=== PATIENT | female | born 1950 | race Caucasian/White ===

== ENCOUNTER 2019-08-30 17:45 | Inpatient (IN) | payer MEDICARE, SELFPAY ==
[2019-08-30] VITALS (33 sets, daily range): BP systolic 140–206; BP diastolic 61–100; PULSE 73–89; RESP 15–30; TEMP 37.2; O2SAT 49–96; BMI 53.6
--- NOTE | 2019-08-30 17:50 | ECG_ITS ---
Measurements Intervals [place] Rate: 84 P: 16 MN: 178 QRS: 16 QRSD: 106 T: 64 QT: 370 QTc: 439 SINUS RHYTHM WITH SINUS ARRHYTHMIA POSSIBLE ANTERIOR MYOCARDIAL INFARCTION , PROBABLY OLD No previous ECG available for comparison Electronically Signed On 08-31-2019 13:08:10 CRISIS MENTAL HEALTH THERAPIST by Sarah Delgado M.D. [id number]
--- NOTE | 2019-08-30 17:50 | XR_ITS ---
WS: [id number] XR chest 1V portable [id number] REASON FOR EXAM: sob FINDINGS: Comparisons were made to February 24, 2019. The cardiac silhouette is borderline enlarged with arteriosclerotic changes. The right costophrenic angle shows a small amount of pleural effusion. There is mild vascular redistribution changes seen. XR/XR chest 1V portable [id number] IMPRESSION: Mild pulmonary congestion. Mild right pleural effusion Borderline cardiomegaly with arteriosclerotic changes.
[2019-08-30 18:02] LABS: ABG PH Result 7.27 (7.35-7.45); Arterial Blood Gas Hematocrit 41.6 % (37-47); Base Excess ABG 3.6 mmol/L (-2.0-2.0); Blood Gas Allen Test Pos; Blood Gas Sample Site Radial, left; Blood Gas Sample Type Arterial; HCO3 ABG 32.6 mmol/L (22-26); Oxygen Device NC; PO2 ABG 58.2 mmHg (80.0-100.0)
[2019-08-30 18:02] LABS: Basophils # 0.1 10^3/uL (0.0-0.1); Basophils % 0.5 %; Eosinophils # 0.1 10^3/uL (0.0-0.8); Eosinophils % 0.4 %; Hematocrit 45.4 % (37.0-47.0); Lymphocytes # 1.5 10^3/uL (0.8-4.8); Lymphocytes % 10.5 %; Mean Corpuscular HGB Conc 28.6 g/dL (30.0-36.0); Mean Corpuscular Hemoglobin 24.8 pg (28.0-34.0); Mean Corpuscular Volume 86.5 fL (81-99); Mean Platelet Volume 10.8 fL (7.4-10.4); Monocytes # 0.7 10^3/uL (0.2-0.9); Neutrophils # 11.2 10^3/uL (1.8-7.7); Neutrophils % 80.9 %; Nucleated Red Blood Cells # 0.1 /100WBC; Nucleated Red Blood Cells % 0.9 %; Platelet Count 309 10^3/cmm (130-400); Red Blood Count 5.25 10^6/uL (4.1-5.3); Red Cell Distribution Width 15.9 % (12.1-15.1); White Blood Count 13.9 10^3/uL (4.0-10.0)
[2019-08-30 18:03] LABS: ABG PCO2 70.7 mmHg (35-45)
--- NOTE | 2019-08-30 18:11 | ED_ITS ---
Entered by Halima Meza, acting as scribe for Rachid Maddox DO HPI - SOB/Dyspnea General: Chief Complaint: Shortness of Breath/Dyspnea Stated Complaint: SOB Time Seen by Provider: 08/30/19 18:05 History of Present Illness: HPI Narrative: 69 yo female presents with shortness of breath. MD elicited complaint: shortness of breath Associated symptoms: Reports chest pain and orthopnea; Deny abdominal pain, dizziness, fever(s), nausea, palpitations or vomiting Review of Systems Const: Reports: chills; Denies: fever Eyes: Denies: change in vision or blurry vision ENMT: Denies: painful swallowing, swelling of lips/tongue, Change in hearing, post nasal drip or facial/sinus pain Card: Reports: chest pain and shortness of breath when lying down; Denies: palpitations, irregular heart rhythm, edema, swelling of feet/ankles or shortness of breath on exertion Resp: Reports: shortness of breath; Denies: productive cough, non-productive cough or wheezing GI: Denies: abdominal pain, nausea, vomiting, rectal pain, blood in stool or black tarry stool : Denies: painful urination, urinary frequency, urinary urgency or blood in urine Musc: Denies: neck pain, back pain, redness or joint warmth Skin/Breast: Denies: rash, itching or redness Neuro: Denies: headache, dizziness, vertigo, confusion or seizure-like activity Psych: Denies: anxiety, visual hallucinations or auditory hallucinations PFSH ED PFSH: Medical History Choledocholithiasis Hypertension Pancreatitis Prediabetes Thyroid disease Surgical History History of cholecystectomy Social History Smoking and tobacco status: never smoked Physical Exam Const: GENERAL APPEARANCE: well developed ORIENTATION/CONSCIOUSNESS: Yes oriented to person, Yes oriented to place and Yes oriented to time HENMT: COMMON NORMALS: normocephalic, external ears normal and external nose normal HEAD & SCALP: normocephalic; no scalp tenderness FACE & SINUS: normal facial exam NOSE: external nose normal and no nasal discharge EXTERNAL EAR: Yes external ears normal Eye: COMMON NORMALS: PERRL, EOMs intact bilaterally and conjunctivae normal EYELID: eyelids normal CONJUNCTIVA: Yes conjunctivae normal PUPIL: Yes PERRL Neck/C-Spine: COMMON NORMALS: full ROM GENERAL: No tracheal deviation Chest: COMMONS NORMALS: inspection of chest normal CHEST: No tenderness Resp: EFFORT & INSPECTION: Yes tachypneic, Yes respiratory distress, No retractions, No uses accessory muscles and No tracheal deviation AUSC ULTATION: no rhonchi, no wheezes and diminished lung sounds Cardio: COMMON NORMALS: regular rate and regular rhythm RATE: regular rate RHYTHM: regular rhythm HEART SOUNDS: no murmurs PERIPHERAL PULSES: radial pulses present GI: INSPECTION: No abdominal distension AUSCULTATION: No hyperactive bowel sounds and No hypoactive bowel sounds PALPATION: No guarding and No rigid PERCUSSION: no dullness to percussion and no tympanic to percussion : COMMON NORMALS: No no CVA tenderness BLADDER/KIDNEY EXAM: No no CVA tenderness Back/Pelvis: COMMON NORMALS: negative for no CVA tenderness Neuro: SENSORIUM/ORIENTATION: Yes oriented to person, Yes oriented to place an d Yes oriented to time Psych: COMMON NORMALS: mental status grossly normal Skin: COMMON NORMALS: no rashes or lesions noted GENERAL SKIN EXAM: no rashes or lesions noted Course Vital Signs: Vital signs: Vital Signs Temperature 98.9 F 08/30/19 17:51 Pulse Rate 78 08/31/19 01:00 Respiratory Rate 21 H 08/31/19 01:00 Blood Pressure 154/67 08/31/19 01:00 Pulse Oximetry 96 08/31/19 01:00 MDM - SOB/Dyspnea MDM Narrative: Medical decision making narrative: 69-year-old female presenting in significant respiratory distress with room air saturations in the mid 40s. She improved quickly on nonrebreather oxygenation. However, she was found to be in respiratory acidosis with a high PCO2 as well. BiPAP was used. At 2 hours, her pH had gone from 7.27-7.37, and PCO2 had decreased nicely. Chest x-ray shows pulmonary edema. Her d-dimer was significantly elevated so CTA was performed, but did not show a clot. She was treated for pulmonary edema, and improved significantly. Before going to the ICU, we did a short trial off of BiPAP, and the patient did not do well, so she went back on BiPAP as soon as she got to the ICU. Lab Data: Labs: Lab Results 08/30/19 08/30/19 08/30/19 Range/Units 17:52 17:57 17:57 WBC 13.9 H (4.0-10.0) 10^3/ uL RBC 5.25 (4.1-5.3) 10^6/u L Hgb 13.0 (11.5-15.3) g/dL Hct 45.4 (37.0-47.0) % MCV 86.5 (81-99) fL MCH 24.8 L (28.0-34.0) pg MCHC 28.6 L (30.0-36.0) g/dL RDW 15.9 H (12.1-15.1) % Plt Count 309 (130-400) 10^3/c mm MPV 10.8 H (7.4-10.4) fL Neut % (Auto) 80.9 % Lymph % (Auto) 10.5 % Gibson % (Auto) 5.0 % Eos % (Auto) 0.4 % Baso % (Auto) 0.5 % Neut # (Auto) 11.2 H (1.8-7.7) 10^3/u L Lymph # (Auto) 1.5 (0.8-4.8) 10^3/u L Gibson # (Auto) 0.7 (0.2-0.9) 10^3/u L Eos # (Auto) 0.1 (0.0-0.8) 10^3/u L Baso # (Auto) 0.1 (0.0-0.1) 10^3/u L Nucleated RBC % (a uto) 0.9 % Nucleated RBCs # 0.1 /100WBC PT 14.20 H (10.5-13.3) SECO NDS INR 1.06 (0.8-1.2) D-Dimer (0-0.59) ug/mIFE U Specimen Type Arterial Sample Site Radial, left ABG pH 7.27 L (7.35-7.45) ABG pCO2 70.7 H* (35-45) mmHg ABG pO2 58.2 L (80.0-100.0) mmH g ABG HCO3 32.6 H (22-26) mmol/L ABG Base Excess 3.6 H (-2.0-2.0) mmol/ L Benigno Test Pos Hematocrit 41.6 (37-47) % O2 Delivery Device Nc O2 Liters/Min 5.0 % FiO2 40.0 % Structural Technician ID ed Sodium (136-145) mmol/L Potassium (3.5-5.1) mmol/L Chloride (98-107) mmol/L Carbon Dioxide (22-29) mmol/L Anion Gap (5-19) BUN (8-23) mg/dL Creatinine (0.5-0.9) mg/dL GFR Calculation (90-130) mL/min Glucose (65-115) mg/dL Lactate (0.5-2.2) mmol/L Calcium (8.5-10.5) mg/dL Total Bilirubin (0.15-1.2) mg/dL AST (0-32) U/L ALT (0-33) U/L Alkaline Phosphata se (35-105) IU/L Troponin T Baselin e (0-10) ng/mL Troponin T 120 Min iroquois (0-10) ng/mL Delta Troponin T (0-10) ABS# NT-Pro-B Natriuret Pep (0-125) pg/mL Total Protein (6.6-8.7) g/dL Albumin (3.5-5.2) g/dL Globulin (1.3-4.6) g/dL Amylase (28-100) U/L Lipase (13-60) U/L 08/30/19 08/30/19 08/30/19 Range/Units 17:57 17:57 17:57 WBC (4.0-10.0) 10^3/ uL RBC (4.1-5.3) 10^6/u L Hgb (11.5-15.3) g/dL Hct (37.0-47.0) % MCV (81-99) fL MCH (28.0-34.0) pg MCHC (30.0-36.0) g/dL RDW (12.1-15.1) % Plt Count (130-400) 10^3/c mm MPV (7.4-10.4) fL Neut % (Auto) % Lymph % (Auto) % Gibson % (Auto) % Eos % (Auto) % Baso % (Auto) % Neut # (Auto) (1.8-7.7) 10^3/u L Lymph # (Auto) (0.8-4.8) 10^3/u L Gibson # (Auto) (0.2-0.9) 10^3/u L Eos # (Auto) (0.0-0.8) 10^3/u L Baso # (Auto) (0.0-0.1) 10^3/u L Nucleated RBC % (a uto) % Nucleated RBCs # /100WBC PT (10.5-13.3) SECO NDS INR (0.8-1.2) D-Dimer 1.23 H (0-0.59) ug/mIFE U Specimen Type Sample Site ABG pH (7.35-7.45) ABG pCO2 (35-45) mmHg ABG pO2 (80.0-100.0) mmH g ABG HCO3 (22-26) mmol/L ABG Base Excess (-2.0-2.0) mmol/ L Benigno Test Hematocrit (37-47) % O2 Delivery Device O2 Liters/Min % FiO2 % Structural Technician ID Sodium 143 (136-145) mmol/L Potassium 4.3 (3.5-5.1) mmol/L Chloride 100 (98-107) mmol/L Carbon Dioxide 31 H (22-29) mmol/L Anion Gap 16.3 (5-19) BUN 26 H (8-23) mg/dL Creatinine 0.8 (0.5-0.9) mg/dL GFR Calculation 70.9 L (90-130) mL/min Glucose 169 H (65-115) mg/dL Lactate 2.4 H (0.5-2.2) mmol/L Calcium 9.9 (8.5-10.5) mg/dL Total Bilirubin 0.4 (0.15-1.2) mg/dL AST 18 (0-32) U/L ALT 42 H (0-33) U/L Alkaline Phosphata se 126 H (35-105) IU/L Troponin T Baselin e (0-10) ng/mL Troponin T 120 Min iroquois (0-10) ng/mL Delta Troponin T (0-10) ABS# NT-Pro-B Natriuret Pep 2005 H (0-125) pg/mL Total Protein 7.8 (6.6-8.7) g/dL Albumin 4.3 (3.5-5.2) g/dL Globulin 3.5 (1.3-4.6) g/dL Amylase (28-100) U/L Lipase (13-60) U/L 08/30/19 08/30/19 08/30/19 Range/Units 17:57 17:57 20:05 WBC (4.0-10.0) 10^3/ uL RBC (4.1-5.3) 10^6/u L Hgb (11.5-15.3) g/dL Hct (37.0-47.0) % MCV (81-99) fL MCH (28.0-34.0) pg MCHC (30.0-36.0) g/dL RDW (12.1-15.1) % Plt Count (130-400) 10^3/c mm MPV (7.4-10.4) fL Neut % (Auto) % Lymph % (Auto) % Gibson % (Auto) % Eos % (Auto) % Baso % (Auto) % Neut # (Auto) (1.8-7.7) 10^3/u L Lymph # (Auto) (0.8-4.8) 10^3/u L Gibson # (Auto) (0.2-0.9) 10^3/u L Eos # (Auto) (0.0-0.8) 10^3/u L Baso # (Auto) (0.0-0.1) 10^3/u L Nucleated RBC % (a uto) % Nucleated RBCs # /100WBC PT (10.5-13.3) SECO NDS INR (0.8-1.2) D-Dimer (0-0.59) ug/mIFE U Specimen Type Sample Site ABG pH (7.35-7.45) ABG pCO2 (35-45) mmHg ABG pO2 (80.0-100.0) mmH g ABG HCO3 (22-26) mmol/L ABG Base Excess (-2.0-2.0) mmol/ L Benigno Test Hematocrit (37-47) % O2 Delivery Device O2 Liters/Min % FiO2 % Structural Technician ID Sodium (136-145) mmol/L Potassium (3.5-5.1) mmol/L Chloride (98-107) mmol/L Carbon Dioxide (22-29) mmol/L Anion Gap (5-19) BUN (8-23) mg/dL Creatinine (0.5-0.9) mg/dL GFR Calculation (90-130) mL/min Glucose (65-115) mg/dL Lactate (0.5-2.2) mmol/L Calcium (8.5-10.5) mg/dL Total Bilirubin (0.15-1.2) mg/dL AST (0-32) U/L ALT (0-33) U/L Alkaline Phosphata se (35-105) IU/L Troponin T Baselin e 15 H (0-10) ng/mL Troponin T 120 Min [place] 19.15 H (0-10) ng/mL Delta Troponin T 4.15 (0-10) ABS# NT-Pro-B Natriuret Pep (0-125) pg/mL Total Protein (6.6-8.7) g/dL Albumin (3.5-5.2) g/dL Globulin (1.3-4.6) g/dL Amylase 49 (28-100) U/L Lipase 29 (13-60) U/L 08/30/19 Range/Units 20:35 WBC (4.0-10.0) 10^3/ uL RBC (4.1-5.3) 10^6/u L Hgb (11.5-15.3) g/dL Hct (37.0-47.0) % MCV (81-99) fL MCH (28.0-34.0) pg MCHC (30.0-36.0) g/dL RDW (12.1-15.1) % Plt Count (130-400) 10^3/c mm MPV (7.4-10.4) fL Neut % (Auto) % Lymph % (Auto) % Gibson % (Auto) % Eos % (Auto) % Baso % (Auto) % Neut # (Auto) (1.8-7.7) 10^3/u L Lymph # (Auto) (0.8-4.8) 10^3/u L Gibson # (Auto) (0.2-0.9) 10^3/u L Eos # (Auto) (0.0-0.8) 10^3/u L Baso # (Auto) (0.0-0.1) 10^3/u L Nucleated RBC % (a uto) % Nucleated RBCs # /100WBC PT (10.5-13.3) SECO NDS INR (0.8-1.2) D-Dimer (0-0.59) ug/mIFE U Specimen Type Arterial Sample Site Radial, right ABG pH 7.37 (7.35-7.45) ABG pCO2 60.8 H* (35-45) mmHg ABG pO2 110.0 H (80.0-100.0) mmH g ABG HCO3 35.7 H (22-26) mmol/L ABG Base Excess 8.3 H (-2.0-2.0) mmol/ L Benigno Test Pos Hematocrit 40.4 (37-47) % O2 Delivery Device Bipap O2 Liters/Min % FiO2 40.0 % Structural Technician ID ellpe Sodium (136-145) mmol/L Potassium (3.5-5.1) mmol/L Chloride (98-107) mmol/L Carbon Dioxide (22-29) mmol/L Anion Gap (5-19) BUN (8-23) mg/dL Creatinine (0.5-0.9) mg/dL GFR Calculation (90-130) mL/min Glucose (65-115) mg/dL Lactate (0.5-2.2) mmol/L Calcium (8.5-10.5) mg/dL Total Bilirubin (0.15-1.2) mg/dL AST (0-32) U/L ALT (0-33) U/L Alkaline Phosphata se (35-105) IU/L Troponin T Baselin e (0-10) ng/mL Troponin T 120 Min iroquois (0-10) ng/mL Delta Troponin T (0-10) ABS# NT-Pro-B Natriuret Pep (0-125) pg/mL Total Protein (6.6-8.7) g/dL Albumin (3.5-5.2) g/dL Globulin (1.3-4.6) g/dL Amylase (28-100) U/L Lipase (13-60) U/L Critical Care Time Critical Care Time: Critical Care Time: Yes Total Critical Care Time: 45 Attestation: This case had a high probability of a clinically significant, sudden, or life threatening deterioration of this patient's condition which required my full and direct attention, intervention and personal management. Discharge Plan Discharge Admit Provider: Shea Chang Condition: Stable Interventions: ED Discharge Assessment Last Done: 08/30/19 23:36 Discharge Date/Time: 08/31/19 00:01 Coding Level of Care Code ED Director Process for Chg Fwd The documentation recorded by the Derrick houser Kialy, accurately reflects the service I personally performed and the decisions made by , Rachid Maddox DO Aug 30, 2019 17:45
[2019-08-30 18:19] LABS: INR 1.06 (0.8-1.2)
--- NOTE | 2019-08-30 18:29 | ECG_ITS ---
Measurements Intervals [place] Rate: 83 P: AK: 0 QRS: 15 QRSD: 101 T: 66 QT: 378 QTc: 445 ATRIAL FIBRILLATION POSSIBLE ANTERIOR MYOCARDIAL INFARCTION , PROBABLY OLD No previous ECG available for comparison Electronically Signed On 08-31-2019 13:07:33 DOCUMENT IMPROVEMENT SPECIALIST by Sarah Delgado M.D. [email or web address]
[2019-08-30 18:37] LABS: Alanine Aminotransferase 42 U/L (0-33); Albumin Level 4.3 g/dL (3.5-5.2); Alkaline Phosphatase 126 IU/L (35-105); Anion Gap 16.3 (5-19); Aspartate Amino Transferase 18 U/L (0-32); Blood Urea Nitrogen 26 mg/dL (8-23); Calcium 9.9 mg/dL (8.5-10.5); Carbon Dioxide 31 mmol/L (22-29); Chloride 100 mmol/L (98-107); Globulin 3.5 g/dL (1.3-4.6); Glomerular Filtration Rate 70.9 mL/min (90-130); Glucose 169 mg/dL (65-115); NT Pro B Type Natriuretic Pept 2005 pg/mL (0-125); Potassium 4.3 mmol/L (3.5-5.1); Sodium 143 mmol/L (136-145); Total Bilirubin 0.4 mg/dL (0.15-1.2); Total Protein 7.8 g/dL (6.6-8.7)
[2019-08-30 18:49] LABS: D Dimer 1.23 ug/mIFEU (0-0.59)
[2019-08-30 18:57] LABS: Lactate (Lactic Acid level) 2.4 mmol/L (0.5-2.2)
[2019-08-30 18:58] LABS: Troponin(5th) Baseline 15 ng/mL (0-10)
--- NOTE | 2019-08-30 19:06 | CTR_ITS ---
PROCEDURE INFORMATION: Exam: CT Angiography Chest With Contrast Exam date and time: 08/30/2019 8:45 PM Age: 69 years old Clinical indication: Shortness of breath; Patient HX: SOB w cp; Additional info: Chest pain TECHNIQUE: Imaging protocol: Computed tomographic angiography of the chest with intravenous contrast. 3D rendering: MIP and/or 3D reconstructed images were created by the technologist. Total DLP: 539.29 mGy-cm Radiation optimization: All CT scans at this facility use at least one of these dose optimization techniques: automated exposure control; mA and/or kV adjustment per patient size (includes targeted exams where dose is matched to clinical indication); or iterative reconstruction. Contrast material: OMNI 350; Contrast volume: 95 ml; Contrast route: 18G; COMPARISON: CR XR chest 1V portable [id number] 08/30/2019 6:09 PM FINDINGS: Pulmonary arteries: Normal. No pulmonary emboli. Aorta: Unremarkable. No aortic aneurysm. No aortic dissection. Lungs: See Pleural Space Finding. Pleural space: There are bilateral pleural effusions with underlying compressive atelectasis or infiltrate. Bilateral pulmonary ground-glass opacities. Heart: Mild cardiomegaly. Gallbladder and bile ducts: The gallbladder has been removed. Lymph nodes: Unremarkable. No enlarged lymph nodes. Bones/joints: There are degenerative changes in the thoracic spine. Soft tissues: Unremarkable. CT/CT angio chest PE protcl [id number] IMPRESSION: 1. There are bilateral pleural effusions with underlying compressive atelectasis or infiltrate. In combination with cardiomegaly, findings are consistent with congestive heart failure. 2. Bilateral pulmonary ground-glass opacities are nonspecific however likely represent pulmonary edema in this patient. Radiation Dose CTDIVOL = (mGy): DLP = 539.29 (mGy-cm)
[2019-08-30] MEDS: ipratropium-albuterol 3 mL Neb INHALATION (19:13)
[2019-08-30] MEDS: FUROsemide 10 mg/mL SDV 10mL 60 MG IVP (19:18)
--- NOTE | 2019-08-30 19:29 | PC.NURSE ---
EKG performed and shown to ED physician.
[2019-08-30] MEDS: enalaprilat 1.25 mg/mL Inj IVP (20:12)
[2019-08-30] MEDS: hyDRALAzine 20 mg/mL INJ 1 mL 10 MG IVP (20:14)
[2019-08-30 20:46] LABS: Blood Gas Allen Test Pos; Blood Gas Sample Site Radial, right; Blood Gas Sample Type Arterial; Oxygen Device BIPAP
[2019-08-30 20:47] LABS: ABG PCO2 60.8 mmHg (35-45); ABG PH Result 7.37 (7.35-7.45); Arterial Blood Gas Hematocrit 40.4 % (37-47); Base Excess ABG 8.3 mmol/L (-2.0-2.0); HCO3 ABG 35.7 mmol/L (22-26)
[2019-08-30 20:51] LABS: Troponin 5 2HR 19.15 ng/mL (0-10); Troponin 5 2HR Delta 4.15 ABS# (0-10)
[2019-08-30] MEDS: iohexol 350 mg/mL 100 mL Btl IV (21:01)
[2019-08-30] MEDS: morphine 4 mg/mL SDV 1 mL IVP (22:15)
[2019-08-30] MEDS: ondansetron 2 mg/ML SDV 2 mL 4 MG IVP (22:15)
--- NOTE | 2019-08-30 23:35 | PC.NURSE ---
Received patient report from Hubert in ER at this time. Marisa RN
[2019-08-31] VITALS (76 sets, daily range): BP systolic 88–165; BP diastolic 44–86; PULSE 52–96; RESP 10–33; TEMP 36.3–37.6; O2SAT 83–99
--- NOTE | 2019-08-31 | PC.NURSE ---
Dr Chang here and is aware of patient's respiratory status and abnormal ABGs. RT also present at bedside. MMorgan RN
[2019-08-31 00:11] LABS: Alveolar-Arterial Oxygen Gradi 449.9 mmHg (5-10); Arterial Blood Gas Hematocrit 44.4 % (37-47); Base Excess ABG 3.7 mmol/L (-2.0-2.0); Blood Gas Allen Test Pos; Blood Gas Sample Site Radial, right; Blood Gas Sample Type Arterial; Carboxyhemoglobin 0.1 %THgb (0.4-20.1); HCO3 ABG 37.6 mmol/L (22-26); HGB O2 Sat 95.3 % (95-100); Ionized Calcium Level - ABG 1.3 mmol/L (1.1-1.4); Methemoglobin 0.2 % (0.4-1.5); Oxygen Device BIPAP; Oxygen Saturation ABG 95.7; Potassium Level - ABG 4.5 mmol/L (3.5-5.0); Total Hemoglobin 14.5 g/dL (12-16)
--- NOTE | 2019-08-31 00:29 | ECG_ITS ---
Measurements Intervals [place] Rate: 69 P: NE: 0 QRS: 13 QRSD: 105 T: 130 QT: 412 QTc: 443 ATRIAL FIBRILLATION WITH ABERRANT CONDUCTION OR VENTRICULAR PREMATURE COMPLEXES POSSIBLE ANTERIOR MYOCARDIAL INFARCTION, OF INDETERMINATE AGE MODERATE T-WAVE ABNORMALITY, CONSIDER LATERAL ISCHEMIA No previous ECG available for comparison Electronically Signed On 09-01-2019 21:10:45 ELEVATOR REPAIR MECHANIC by Sarah Delgado M.D. [id number]
--- NOTE | 2019-08-31 00:29 | PC.RESP ---
patient got to ICU sp02 80% on NRB, oxygen tank empty when unplugged to plastic sheets finishing supervisor to wall quick connect, bipap placed on patient changed bipap to 25/15 100%, called dr jean baptiste for ABG, critical results read back to dr jean baptiste, no new orders at this time, to keep patient on bipap, will continue to monitor
[2019-08-31] MEDS: naloxone 0.4 mg/ml SDV IVP ×2 (00:30→00:45)
--- NOTE | 2019-08-31 00:31 | USCV_ITS ---
Adalberto Jennifer Age: 69 Gender: F : 1950 Exam Date: 08/31/2019 09:12 Ordering Phys: Shea Chang MD Technologist: Iker Grimm Exam Location: [facility] Indication: NEW CHF BP: 126 / 60 HR: 75 Rhythm: Sinus Technical Quality: Very technically difficult study MEASUREMENTS (Male / Female) Normal Values 2D ECHO LV Diastolic Diameter PLAX 4.2 cm 4.2 - 5.9 / 3.9 - 5.3 cm LV Systolic Diameter PLAX 2.6 cm IVS Diastolic Thickness 1.3 cm 0.6 - 1.0 / 0.6 - 0.9 cm IVS Systolic Thickness 1.5 cm LVPW Diastolic Thickness 1.2 cm 0.6 - 1.0 / 0.6 - 0.9 cm LVPW Systolic Thickness 1.6 cm LVOT Diameter 2.0 cm LV Ejection Fraction 2D Teich 68.0 % LA Diameter 4.3 cm M-MODE LV Diastolic Diameter MM 5.7 cm 4.2 - 5.9 / 3.9 - 5.3 cm LV Systolic Diameter MM 3.3 cm LV Ejection Fraction MM Teich 72.7 % IVS Diastolic Thickness MM 1.0 cm 0.6 - 1.0 / 0.6 - 0.9 cm IVS Systolic Thickness MM 2.2 cm LVPW Diastolic Thickness MM 1.1 cm 0.6 - 1.0 / 0.6 - 0.9 cm LVPW Systolic Thickness MM 1.6 cm RV Diastolic Diameter MM 2.0 cm Aortic Annulus Diameter 3.5 cm LA Ao Ratio MM 1.2 MV E Point Septal Separation 0.8 cm DOPPLER TR Peak Velocity 241.0 cm/s TR Peak Gradient 23.3 mmHg TV Peak E Velocity 113.0 cm/s Right Atrial Pressure 15.0 mmHg Pulmonary Artery Systolic Pressu 38.2 mmHg FINDINGS Left Ventricle Left ventricular cavity not well visualized. Probably normal left ventricular systolic function. The study is inadequate for estimation of regional wall motion abnormality. Right Ventricle Right ventricle not well visualized. Right Atrium Right atrium not well visualized. Left Atrium Left atrium not well visualized. Mitral Valve Moderate mitral annular calcification. Aortic Valve Aortic valve not well visualized. Tricuspid Valve Tricuspid valve not well visualized. Trace tricuspid valve regurgitation. Pulmonic Valve Pulmonic valve not well visualized. No pulmonary valve stenosis. Trace pulmonary valve regurgitation. Pericardium No pericardial effusion. Aorta Normal-sized aortic root. CONCLUSIONS 1. This is a technically very difficult study because of poor ultrasonic windows. 2. Probably normal left ventricular systolic function. The study is inadequate for estimation of regional wall motion abnormality. 3. No prior similar studies to compare. Sarah Delgado MD (Electronically Signed) Final Date: 31 August 2019 14:10 S
--- NOTE | 2019-08-31 00:42 | P.HP_ITS ---
Providers/Chief Complaint Admitting Physician: Shea Chang MD Primary Care Provider: Radha Bagley NP Chief Complaint: SOB History of Present Illness Jennifer Glover is a 69 year old female with a past medical history of hypertension, prediabetes, pancreatitis in March 2019 required urgent cholecystectomy for history of [facility] which was complicated by prolonged ventilator dependent respiratory failure and to 13 days to extubate patient. She does not have a baseline history of COPD, chronic home oxygen use, sleep apnea or CHF. The history currently is obtained by talking to the patient's . At the time of my evaluation patient is obtunded. Per patient was in her usual state of health until about 3 to 4 days ago when she started to experience elvin rtness of breath initially on exertion gradually worsening to the point of being short of breath at rest. She had complained of some intrascapular back pain at the time of onset of symptoms. She she has had a mild cough with some mucoid expectoration. She is back to the ER today with the above complaints and was noted to be in severe respiratory distress, hypoxic respiratory failure with O2 sats of 46%.. Blood gas upon admission was 7.27/70 7/50 8.2/32.6 on 5 L of nasal cannula. She was started on BiPAP and an approximately 2 hours her gas improved to 7.37/60 0.8/1 10/35.7. Per report she had shown symptomatic improvement she was alert and awake and cooperative. She was able to move from bed to bedside commode. She received 4 mg of IV morphine for complaints of back pain. At the time of my evaluation, patient is more lethargic. She is able to correctly state her name and answer yes or no to directed questions, however is unable to tell me recent events. She is given a trial of taking of the BiPAP and put on 10 L nonrebreather, however this did drop her oxygen saturation back to 79%. She has therefore been transferred to the ICU and placed back on BiPAP at this time. Tidal volume is low with 200 to 300 mL. Narcan has been administered x2. Repeat gas currently at midnight is 7.1 1/118/124/30 7.6. Carboxyhemoglobin is 0.1. Methemoglobin is 0.2. At this point discussion was pursued with the regarding the need for intubation and mechanical ventilation, however patient states that him and his have discussed that in the past and she has elected not to be intubated. Even though she does not carry a significant premorbid respiratory condition diagnosis,, at the time when she had her pancreatitis and needed emergent surgery, she was unable to be taken off of the ventilator for 13 days. This was a very traumatic experience for the patient and she stated to her that she would not want to be intubated again. He states that she had undergone an echocardiogram, stress test and an angiogram, none of which were suggestive of obstructive CAD. He does not know her last EF. Diagnostics in the ER was thus far showing leukocytosis of 13.9, ABGs as above, normal renal function creatinine 0.8, lactate 2.4, ALT 42 normal AST alk phos 126. Troponin delta's of +4 and then -1.25. BNP is elevated at greater than 2000. CTA chest is negative for PE. There are bilateral pleural effusions with underlying compressive atelectasis or infiltrate. Cardiomegaly is also noted. Concern for congestive heart failure. There are bilateral pulmonary groundglass opacities likely represent pulmonary edema. Upon arrival to the ED her blood pressure was 184/98, has been states it has been uncontrolled recently and a new medication was added about 2 weeks ago, however he does not know which one this was. She has received hydralazine and enalapril with blood pressure now 154/67. Review of Systems General: Reports: ROS unobtainable due to medical condition and ROS unobtainable due to mental status Medications/Allergies Home Medications Medication Instructions Recorded Confirmed Last Taken Type amlodipine 5 mg PO BID 08/30/19 08/30/19 08/30/19 History aspirin 81 mg PO DAILY 08/30/19 08/30/19 08/30/19 History ibuprofen 800 mg PO TID 08/30/19 08/30/19 08/30/19 History metoprolol succinate 50 mg PO DAILY 08/30/19 08/30/19 08/30/19 History Allergies Allergy/AdvReac Type Severity Reaction Status Date / Time No Known Allergies Allergy Verified 08/30/19 17:56 PFSH Acute PFSH: Medical History Choledocholithiasis Hypertension Pancreatitis Prediabetes Thyroid disease Surgical History History of cholecystectomy Social History Smoking and tobacco status: never smoked Vitals/I&O/Wt Last Vital Signs Temp 98.9 F 08/30/19 17:51 Pulse 73 08/30/19 23:36 Resp 20 H 08/30/19 23:36 BP 163/74 08/30/19 23:36 Pulse Ox 96 08/30/19 23:36 Weight last 48 hrs Weight 124.738 kg Physical Exam Narrative: EXAM NARRATIVE: GEN: Lethargic, opens eyes to calling name, is able to answer some simple questions including her name and yes or no however does not consistently follow commands. CVS: S1S2 N RS: Reduced air entry bilateral anteriorly, more likely related to poor inspiratory effort. Abd: Soft, obese, Nt/nd , bs+ TRANSCRIBER: Lethargic, moves bilateral upper extremities, not following commands for other assessment. Data : 08/30/19 17:57 08/30/19 17:57 Micro: Microbiology 08/30/19 18:35 Blood Culture - Preliminary Blood SPECIMEN COLLECTED 08/30/19 17:57 Blood Culture - Preliminary Blood SPECIMEN COLLECTED A&P Assessment and plan (1) Hypertension: Status: Acute Code(s): I10 - Essential (primary) hypertension (2) Acute respiratory failure with hypoxia and hypercapnia: Status: Acute Code(s): J96.01 - Acute respiratory failure with hypoxia; J96.02 - Acute respiratory failure with hypercapnia (3) Pulmonary edema: Status: Acute Code(s): J81.1 - Chronic pulmonary edema (4) Acute encephalopathy: Status: Acute Code(s): G93.40 - Encephalopathy, unspecified (5) Hypertensive emergency: Status: Acute Code(s): I16.1 - Hypertensive emergency Additional A&P Information Admit to ICU in view of acute hypoxic hypercapnic respiratory failure. 1. Acute hypoxic hypercapnic respiratory failure. Per discussion with the patient does not have a prior diagnosis of COPD, CHF, sleep apnea or other respiratory issues. Apart from that time postoperatively when she needed to be vent dependent for 13 days and had diffic ult extubation, she has not been having any chronic respiratory issues. Per his history symptoms started more subacutely over the past week or so. CT chest shows bilateral diffuse infiltrates suggestive of pulmonary edema. This may be likely to CHF from underlying cardiac causes versus hypertensive urgency with blood pressure greater than 180/120 upon presentation. Additionally her blood pressure has been uncontrolled over the past 2 weeks at least per history. We will obtain echocardiogram No PE noted on the above study Troponins only mildly elevated with negative delta, therefore low suspicion for acute coronary syndrome at this time. Will check influenza swab given symptoms of running nose and cough Empiric ceftriaxone and azithromycin for now while undergoing sepsis rule out. Blood culture with morning labs. Check procalcitonin Infiltrates do not appear to be fluffy exudates to raise concern for ARDS from sepsis. Avoid any further opiates to minimize risk of respiratory depression. She was given Narcan x2, however this has not been a significant to her respiratory status. I have discussed with the that at this time that intubation with mechanical is indicated , however he has stated that patient is DNI per her last known wishes and has had extensive discussion with her after her hospitalization in March 2019. Details as in HPI. We will continue BiPAP continuously and check serial ABGs. 2. Acute encephalopathy most likely resulting from hypoxia and hypercapnia. Patient had an better mental status upon admission. This is gradually declined during her stay and correlates with rising CO2 levels. Therefore most likely suspect hypercapnia to be the cause. Opiates may be contributing additionally, however there was no response after getting Narcan and there is no pupillary constriction noted on exam at this time. 3. Hypertension: Patient is to be kept n.p.o. given severe respiratory distress. BP control with hydralazine and metoprolol 4. reported h/o preDM, will check a1c 5. 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
[2019-08-31 00:48] LABS: Amylase 49 U/L (28-100); Lipase 29 U/L (13-60)
[2019-08-31 00:53] LABS: ABG PH Result 7.11 (7.35-7.45)
[2019-08-31 00:53] LABS: Troponin 5 6HR 13.75 ng/mL (0-10)
[2019-08-31 00:59] LABS: Glucose Point of Care 176 mg/dL (70-110)
[2019-08-31 01:00] LABS: Troponin 5 6HR Delta -1.25 ng/L (0-12)
[2019-08-31 01:18] LABS: Add Urine Microscopic? YES; Bilirubin Urine Neg (NEGATIVE); Blood Urine Neg (Negative); Glucose Urine UA Norm (Normal); Ketones Urine Negative (Negative); Leukocyte Esterase Urine Negative (Negative); Nitrate Urine Negative (Negative); Protein Urine Trace (Negative); RBC Urine RARE /hpf (0-2); Specific Gravity, Urine 1.015 (1.005-1.030); Squamous Epithelial Cell Urine RARE (0-5); Urine Color Yellow (Yellow); Urobilinogen Urine Norm (Negative); WBC Urine RARE /hpf (0-5); pH Urine 5 (5-7)
[2019-08-31] MEDS: azithromycin 500 MG in sodium chloride 0.9% 250 ML 250 MG IV (01:18)
[2019-08-31 01:19] LABS: Amorphous Sediment Urine 2+; Bacteria Urine 1+
[2019-08-31] MEDS: nitroglycerin 1 gm/inch oint Pkt 1 INCH TOPICAL (01:21)
[2019-08-31] MEDS: cefTRIAXone 1,000 MG in sodium chloride 0.9% (plus) 50 ML 100 MG IV (01:21)
[2019-08-31 01:54] LABS: Arterial Blood Gas Hematocrit 42.5 % (37-47); Base Excess ABG 2.9 mmol/L (-2.0-2.0); Blood Gas Allen Test Pos; Blood Gas Sample Site Radial, right; Blood Gas Sample Type Arterial; HCO3 ABG 36.6 mmol/L (22-26); Oxygen Device BIPAP
--- NOTE | 2019-08-31 02:00 | PC.NURSE ---
Dr Chang at bedside along with RT. MD aware of respiratory status and abnormal ABGs. MMorgan RN
[2019-08-31 02:16] LABS: Influenza A by IFA Negative (Negative); Influenza B by IFA Negative (Negative)
[2019-08-31] MEDS: ipratropium-albuterol 3 mL Neb INHALATION ×6 (03:50→23:29)
[2019-08-31] MEDS: FUROsemide 10 mg/mL SDV 4mL 40 MG IVP ×2 (04:09→13:16)
[2019-08-31] MEDS: metoprolol tartrate 1 mg/1 mL SDV 5 mL 2.5 MG IV ×5 (04:10→20:36)
[2019-08-31 04:23] LABS: Arterial Blood Gas Hematocrit 41.3 % (37-47); Base Excess ABG 3.8 mmol/L (-2.0-2.0); Blood Gas Allen Test Pos; Blood Gas Sample Site Radial, right; Blood Gas Sample Type Arterial; HCO3 ABG 36.1 mmol/L (22-26); Oxygen Device BIPAP
--- NOTE | 2019-08-31 04:32 | P.EN_ITS ---
Event Note Event Note: Patient has had serial ABGs 3 times since moving to the ICU at midnight. All have consistently shown a pH of around 7.1 PCO2 between 10 3-1 1 8. Patient is becoming increasingly bradycardic with heart rate now down to 50s. She continues to pull poor tidal volumes of 200 mL on the BiPAP. Her se ttings remain at 100% FiO2. Call was placed to Mr. Glover to discuss patient's ongoing clinical state. Discussed with him that patient's cardiac status is starting to get affected in view of respiratory decline and that bradycardia may soon progress to arrhythmia or asystole. I am concerned that she may pass from such an event overnight. Currently her resuscitation status is to perform chest compressions if needed and follow ACLS protocol for arrhythmias. I discussed with him again that while we could follow the instructions as above, it is highly unlikely to be of any benefit to try to resuscitate from a cardiac standpoint without addressing the underlying inciting factor which is respiratory distress, hypoxia and hypercapnia.. In her situation any resuscitative measures should be directed both towards the cardiac and pulmonary systems. Given the above and the fact that the cause of her sudden decompensation over the past 4 days is still being worked up, current evaluation pointing towards pulmonary edema, effusion and possible pneumonia which may be potentially reversible, a resuscitative approach including intubation would not be unreasonable at this time. Mr. Lefty Glover has decided now to proceed with intubation and mechanical ventilation in addition to other ACLS resuscitative measures if needed. However if within the next 48 hours patient continues to decline and is eventually unable to be weaned off the ventilator, he would not want a prolonged intubation will likely elect for comfort care in that setting. At this time, it is not possible to predict how long she will need to remain intubated. Event Notes Attestations Time Spent in Patient Care: Greater than 35 minutes (>than 50% of time spent in counselling and/or direct pt care on unit) .
[2019-08-31] MEDS: succinylcholine 20 mg/mL SDV 10mL 150 MG IVP (04:43)
[2019-08-31] MEDS: midazolam 1 mg/mL INJ 2 mL 4 MG IVP (04:45)
[2019-08-31 04:51] LABS: Thyroid Stimulating Hormone 0.43 uIU/mL (0.27-4.20)
--- NOTE | 2019-08-31 04:58 | XR_ITS ---
WS: [id number] XR chest 1V portable [id number] REASON FOR EXAM: intubation FINDINGS: Endotracheal tube is seen the tube is noted in the karine and there appears to be mild leilani estion of both hilar areas. A feeding tube is seen in the stomach. The ICU was called this report at 8:29 AM on 08/31/2019. XR/XR chest 1V portable [id number] IMPRESSION: Endotracheal tube too low in the karine with congestion low-grade atelectasis p erihilar areas. The feeding tube is seen in the upper stomach.
[2019-08-31 04:59] LABS: Basophils % 0.3 %; Eosinophils % 0.1 %; Hematocrit 45.1 % (37.0-47.0); Hemoglobin 12.6 g/dL (11.5-15.3); Lymphocytes # 0.7 10^3/uL (0.8-4.8); Lymphocytes % 5.1 %; Mean Corpuscular HGB Conc 27.9 g/dL (30.0-36.0); Mean Corpuscular Hemoglobin 24.7 pg (28.0-34.0); Mean Corpuscular Volume 88.3 fL (81-99); Mean Platelet Volume 11.4 fL (7.4-10.4); Monocytes # 0.1 10^3/uL (0.2-0.9); Monocytes % 1.1 %; Neutrophils # 11.8 10^3/uL (1.8-7.7); Neutrophils % 90.8 %; Nucleated Red Blood Cells # 0.1 /100WBC; Nucleated Red Blood Cells % 0.4 %; Platelet Count 274 10^3/cmm (130-400); Red Blood Count 5.11 10^6/uL (4.1-5.3); Red Cell Distribution Width 15.7 % (12.1-15.1)
[2019-08-31] MEDS: propofol 1,000 MG/100 ML INJ 15 MG IV (05:00)
[2019-08-31 05:31] LABS: Alanine Aminotransferase 41 U/L (0-33); Albumin Level 3.7 g/dL (3.5-5.2); Alkaline Phosphatase 116 IU/L (35-105); Anion Gap 15.7 (5-19); Aspartate Amino Transferase 17 U/L (0-32); Blood Urea Nitrogen 30 mg/dL (8-23); Calcium 9.2 mg/dL (8.5-10.5); Carbon Dioxide 31 mmol/L (22-29); Chloride 101 mmol/L (98-107); Globulin 3.5 g/dL (1.3-4.6); Glomerular Filtration Rate 54.8 mL/min (90-130); Glucose 191 mg/dL (65-115); Potassium 4.7 mmol/L (3.5-5.1); Sodium 143 mmol/L (136-145); Total Bilirubin 0.2 mg/dL (0.15-1.2); Total Protein 7.2 g/dL (6.6-8.7)
[2019-08-31 06:04] LABS: ABG PH Result 7.27 (7.35-7.45); Arterial Blood Gas Hematocrit 40.2 % (37-47); Base Excess ABG 5.7 mmol/L (-2.0-2.0); Blood Gas Allen Test Pos; Blood Gas Sample Site Radial, right; Blood Gas Sample Type Arterial; Blood Gas Tidal Volume 0.45; HCO3 ABG 35.1 mmol/L (22-26); Oxygen Device VENT
[2019-08-31 07:27] LABS: ABG PCO2 76.1 mmHg (35-45)
[2019-08-31 07:27] LABS: ABG PH Result 7.15 (7.35-7.45)
[2019-08-31] MEDS: propofol 1,000 MG/100 ML INJ 44.9 MG IV ×5 (07:45→15:19)
--- NOTE | 2019-08-31 07:59 | PC.NURSE ---
After Narcan administered patient's respiratory status did not improve despite bipap settings being changed by Rt, requiring more oxygenation, MD called and spoke with patient's who gave permission to intubate and start mechanical ventilation. Dr Maddox at bedside, RSI medications administered, vital signs stable and charted,size 8 tube inserted by MD without event, 24 at the lip, OG tube inserted and secured with xray taken to ensure proper placement of both and verified to be in correct placement, propofol drip started and soft wrist restraints placed, family updated and at bedside. Marisa RN
[2019-08-31 08:28] LABS: Glucose Point of Care 159 mg/dL (70-110)
[2019-08-31 08:36] LABS: Procalcitonin 0.14 ng/mL (0-0.5)
--- NOTE | 2019-08-31 09:32 | XR_ITS ---
WS: [id number] XR chest 1V portable [id number] REASON FOR EXAM: adjusted ETT FINDINGS: The cardiac silhouette is not enlarged. The endotracheal tube is now been readjusted the atelectasis in the hilar areas have cleared good pos itioning of the endotracheal tube is seen. There is mild interstitial edema still seen. XR/XR chest 1V portable [id number] IMPRESSION: The endotracheal tube is now seen in satisfactory position with clearing of the atelectasis in the perihilar areas.
--- NOTE | 2019-08-31 11:53 | PC.CHAP ---
Pastoral Care Encounter/Spiritual Assessment Type of Contact [] Declined pipe line walker visit [] Patient/Family/Request visit [] Outpatient visit [] Follow-up visit [] Physician referral [] Code/Alert [] Routine visit [] Staff referral [] Actively dying [] Patient sleeping [] Family support [] [] Out of room [] Palliative care [] [] Receiving care in room [] Pre-surgical visit [] Trauma [] Long length of stay [] ICU visit [] Other: Relational/Emotional Strength [] Patient feels connected with others/family/visitors/staff [] Distress [] Loneliness/isolation [] Abandonment Spirituality of Patient [] Person of Jennifer [] Attends Jainism of their Jennifer [] Believes in Prayer [] Reads Bible or Presybeterian materials [] There are Spiritual issues to be addressed Customer Service Supervisor Interventions [] Prayer [] Active listening [] Non-anxious presence [] Spiritual/emotional support [] Crisis/trauma care [] Spiritual counseling [] Bereavement support [] Provided bereavement packet [] Provided Bible/devotional materials [] Provided toy/stuffed animal, coloring book to patient or family member [] Provided Communion [] Anointing/[place] [] Salvation [] Completed spiritual assessment [] Other: Impact on Illness or Injury [] Angry [] Fearful [] Anxious [] Often cries [] Exhaustion [] Unable to work [] Unable to attend quaker [] Unable to walk/stand [] Unable to read [] Unable to drive [] Unable to eat/drink [] Unable to sleep [] Unable to be with family [] Patient intubated [] Other: Summary Time spent with patient Pastoral Care Encounter/Spiritual Assessment Type of Contact [] Declined pipe line walker visit [] Patient/Family/Request visit [] Outpatient visit [] Follow-up visit [] Physician referral [] Code/Alert [] Routine visit [] Staff referral [] Actively dying [] Patient sleeping [] Family support [] [] Out of room [] Palliative care [] [] Receiving care in room [] Pre-surgical visit [] Trauma [] Long length of stay [] ICU visit [] Other: Relational/Emotional Strength [] Patient feels connected with others/family/visitors/staff [] Distress [] Loneliness/isolation [] Abandonment Spirituality of Patient [] Person of Jennifer [] Attends Jainism of their Jennifer [] Believes in Prayer [] Reads Bible or Presybeterian materials [] There are Spiritual issues to be addressed Customer Service Supervisor Interventions [] Prayer [] Active listening [] Non-anxious presence [] Spiritual/emotional support [] Crisis/trauma care [] Spiritual counseling [] Bereavement support [] Provided bereavement packet [] Provided Bible/devotional materials [] Provided toy/stuffed animal, coloring book to patient or family member [] Provided Communion [] Anointing/[place] [] Salvation [] Completed spiritual assessment [] Other: Impact on Illness or Injury [] Angry [] Fearful [] Anxious [] Often cries [] Exhaustion [] Unable to work [] Unable to attend quaker [] Unable to walk/stand [] Unable to read [] Unable to drive [] Unable to eat/drink [] Unable to sleep [] Unable to be with family [] Patient intubated [] Other: Summary Follow-up, patient sleeping. Time spent with patient
--- NOTE | 2019-08-31 17:16 | PM.PN ---
Subjective Subjective: Interval history: Intubated, sedated. Not in distress. Vitals/I&O/Wt Last Vital Signs Temp 99.5 F 08/31/19 13:00 Pulse 61 08/31/19 15:06 Resp 16 08/31/19 17:00 BP 148/78 08/31/19 15:00 Pulse Ox 93 08/31/19 15:06 08/31/19 08/31/19 08/31/19 06:59 14:59 22:59 Intake Total 53.00 / 53.00 347.000 / 347.000 151.164 / 498.164 Output Total 960 / 960 225 / 225 Balance -907.00 / -907.00 122.000 / 122.000 151.164 / 273.164 Weight last 48 hrs Weight 136.134 kg Weight 124.738 kg Physical Exam Const: COMMON NORMALS: no apparent distress NUTRITIONAL APPEARANCE: obese OTHER: is with her in the room. HENMT: COMMON NORMALS: oropharynx normal Neck/C-Spine: OTHER: Cannot assess for JVD Resp: AUSCULTATION: diminished lung sounds Cardio: COMMON NORMALS: regular rhythm, S1 normal heart sound, S2 normal heart sound and no murmurs RHYTHM: regular rhythm HEART SOUNDS: S1 normal and S2 normal GI: COMMON NORMALS: normal to inspection, nondistended, normoactive bowel sounds and soft to palpation PALPATION: Yes soft Extremity: COMMON NORMALS: no joint enlargement GENERAL: Yes edema Neuro: OTHER: No seizure-like active Skin: COMMON NORMALS: no rashes or lesions noted GENERAL SKIN EXAM: no rashes or lesions noted Urinary Catheter Management^: [place]: Cath Placed During This Visit: yes Urethral Indwelling: Yes Reason for Continuing Indwelling Catheter: Accurate Measurement of Urinary Output in Critically Ill Patients Urinary Catheter Date of Insertion: 08/31/19 Urinary Catheter Time of Insertion: 00:52 Data : 08/31/19 04:34 08/31/19 04:34 Micro: Microbiology 08/30/19 18:35 Blood Culture - Preliminary Blood SPECIMEN COLLECTED 08/30/19 17:57 Blood Culture - Preliminary Blood SPECIMEN COLLECTED A&P Assessment and plan (1) Acute respiratory failure with hypoxia and hypercapnia: Progressive respiratory failure not responsive to BiPAP. This morning had to be intubated. With pulmonary edema noted will for unclear etiology. Possible CHF. TTE with possibly normal EF, but technically very difficult study. Discussed with her possibilities not from edema may be secondary to severe hypertension she came in with, alternatively she apparently also with morbid obesity, and snores at night suspect she has sleep apnea which may have contributed to pulmonary edema in case of respiratory failure or encephalopathy due to a different cause. states she has never been assessed by sleep study, discussed with him that she may benefit after she recovers. Consideration for other undiagnosed pulmonary illness with possible interstitial lung disease. 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 Groundglass opacities seen on CT scan, possibly secondary to CHF, but suspect may be related to ILD. Bilateral pleural effusions likely contributing. I suspect also likely OHS. Not a lot of sputum, but reported thick. For now continue mechanical ventilatory support. Continue Lasix, antibiotics, steroid. Wean down mechanical ventilatory support as tolerating. She is doing somewhat better, with PEEP of 10, FiO2 is down to 50%. Consider pulmonary evaluation as I suspect extubation may be difficult. Consider extubation straight to CPAP. Status: Acute Code(s): J96.01 - Acute respiratory failure with hypoxia; J96.02 - Acute respiratory failure with hypercapnia (2) Acute encephalopathy: With acute hypercapnic and hypoxic respiratory failure. CHF. Severe hypertension on presentation. Mental status reported gradually declined along with respiratory status prior to intubation. Status: Acute Code(s): G93.40 - Encephalopathy, unspecified (3) Hypertension: Monitor blood pressures. Severely elevated on presentation. Would benefit from sleep study. Status: Acute Code(s): I10 - Essential (primary) hypertension (4) Prediabetes: Requested A1c. Status: Acute Code(s): R73.03 - Prediabetes Additional A&P Information Removed ring from left ring finger, requested to continue attempts to remove one from the right side. Admission at [facility] due to biliary pancreatitis back in March, with surgery, retrieval of gallstones, stent placement, subsequently stent removal 12 weeks later. reports had cardiac work-up at that time. Records requested and should be in paper chart. Lipase is low. History of possible thyroid problem: TSH is low normal. Morbid obesity: Would benefit from consideration of options for weight loss, she is out of acute episode of illness. Attestations Medical Necessity Statement*: Continue admission for cyst of acute respiratory with hypoxia and hypercapnia, acute encephalopathy. 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
[2019-08-31] MEDS: heparin 5,000 unit/mL INJ 1 mL 5000 UNIT SUBCUT (18:07)
[2019-08-31 18:16] LABS: Estmated Average Glucose 131; Hemoglobin A1C 6.2 % (4.0-6.0)
[2019-08-31 18:36] LABS: Glucose Point of Care 182 mg/dL (70-110)
[2019-08-31 18:37] LABS: Glucose Point of Care 154 mg/dL (70-110)
[2019-08-31] MEDS: pantoprazole 40 mg SDV IVP (18:40)
[2019-08-31] MEDS: propofol 1,000 MG/100 ML INJ 22.5 MG IV (18:40)
[2019-08-31 20:38] LABS: Glucose Point of Care 166 mg/dL (70-110)
[2019-08-31] MEDS: propofol 1,000 MG/100 ML INJ 29.9 MG IV (21:23)
[2019-09-01] VITALS (37 sets, daily range): BP systolic 130–184; BP diastolic 48–74; PULSE 66–105; RESP 16–18; TEMP 36.2–37.5; O2SAT 87–95
[2019-09-01] MEDS: propofol 1,000 MG/100 ML INJ 29.9 MG IV ×2 (00:33→05:44)
[2019-09-01] MEDS: FUROsemide 10 mg/mL SDV 4mL 40 MG IVP (00:34)
[2019-09-01] MEDS: metoprolol tartrate 1 mg/1 mL SDV 5 mL 2.5 MG IV ×3 (00:39→09:11)
[2019-09-01] MEDS: cefTRIAXone 1,000 MG in sodium chloride 0.9% (plus) 50 ML 100 MG IV (00:39)
[2019-09-01] MEDS: azithromycin 500 MG in sodium chloride 0.9% 250 ML 250 MG IV (01:20)
[2019-09-01] MEDS: heparin 5,000 unit/mL INJ 1 mL 5000 UNIT SUBCUT ×3 (01:20→17:25)
[2019-09-01] MEDS: propofol 1,000 MG/100 ML INJ 44.9 MG IV ×2 (03:18→16:41)
[2019-09-01] MEDS: ipratropium-albuterol 3 mL Neb INHALATION ×6 (03:46→23:35)
[2019-09-01 04:57] LABS: ABG PCO2 42.9 mmHg (35-45); ABG PH Result 7.48 (7.35-7.45); Arterial Blood Gas Hematocrit 39.1 % (37-47); Base Excess ABG 7.2 mmol/L (-2.0-2.0); Blood Gas Allen Test Pos; Blood Gas Sample Site Radial, right; Blood Gas Sample Type Arterial; Blood Gas Tidal Volume 0.45; HCO3 ABG 31.6 mmol/L (22-26); Oxygen Device VENT; PO2 ABG 67.6 mmHg (80.0-100.0)
[2019-09-01 05:38] LABS: Alanine Aminotransferase 39 U/L (0-33); Albumin Level 3.3 g/dL (3.5-5.2); Alkaline Phosphatase 98 IU/L (35-105); Anion Gap 22.5 (5-19); Aspartate Amino Transferase 21 U/L (0-32); Blood Urea Nitrogen 44 mg/dL (8-23); Calcium 9.3 mg/dL (8.5-10.5); Carbon Dioxide 25 mmol/L (22-29); Chloride 98 mmol/L (98-107); Globulin 3.9 g/dL (1.3-4.6); Glomerular Filtration Rate 40.5 mL/min (90-130); Glucose 216 mg/dL (65-115); Potassium 3.5 mmol/L (3.5-5.1); Procalcitonin 0.08 ng/mL (0-0.5); Sodium 142 mmol/L (136-145); Total Bilirubin 0.4 mg/dL (0.15-1.2); Total Protein 7.2 g/dL (6.6-8.7)
--- NOTE | 2019-09-01 06:00 | XR_ITS ---
WS: [id number] CHEST XRAY TECHNIQUE: Portable chest. CLINICAL INFORMATION: Hypoxia COMPARISON: August 31, 2019 FINDINGS: Endotracheal tube with tip above the karine measuring 2.1 CM. Enteric tube with tip below the diaphra gm. Heart: Cardiomegaly. Lungs: Small bilateral pleural effusions with bibasilar infiltrates/atelectasis progressed. Bones: Mild thoracic curve convex right. XR/XR chest 1V portable [id number] IMPRESSION: 1. Endotracheal tube with tip 2 cm above the karine. Enteric tube with tip bel ow the diaphragm. 2. Cardiomegaly with small bilateral pleural effusions slightly progressed.
[2019-09-01 06:02] LABS: Basophils % 0.1 %; Hematocrit 40.4 % (37.0-47.0); Lymphocytes # 0.5 10^3/uL (0.8-4.8); Lymphocytes % 4.1 %; Mean Corpuscular HGB Conc 29.7 g/dL (30.0-36.0); Mean Corpuscular Hemoglobin 24.8 pg (28.0-34.0); Mean Corpuscular Volume 83.5 fL (81-99); Mean Platelet Volume 11.3 fL (7.4-10.4); Monocytes # 0.5 10^3/uL (0.2-0.9); Neutrophils # 10.8 10^3/uL (1.8-7.7); Neutrophils % 90.9 %; Nucleated Red Blood Cells % 0 %; Platelet Count 240 10^3/cmm (130-400); Red Blood Count 4.84 10^6/uL (4.1-5.3); Red Cell Distribution Width 16.4 % (12.1-15.1); White Blood Count 11.9 10^3/uL (4.0-10.0)
[2019-09-01] MEDS: hyDRALAzine 20 mg/mL INJ 1 mL 10 MG IVP (06:19)
[2019-09-01] MEDS: propofol 1,000 MG/100 ML INJ 37.4 MG IV ×4 (08:10→14:27)
[2019-09-01] MEDS: pantoprazole 40 mg SDV IVP (09:19)
--- NOTE | 2019-09-01 11:33 | PM.PN ---
Subjective Subjective: Interval history: Jennifer is sedated on the ventilator. Medications: Reviewed: Yes Vitals/I&O/Wt Last Vital Signs Temp 97.2 F L 09/01/19 08:53 Pulse 69 09/01/19 10:00 Resp 16 09/01/19 08:28 BP 146/58 09/01/19 10:00 Pulse Ox 92 09/01/19 10:00 08/31/19 09/01/19 09/01/19 22:59 06:59 14:59 Intake Total 266.359 / 613.359 314.077 / 927.436 137.133 / 137.133 Output Total 475 / 700 900 / 1600 Balance -208.641 / -86.641 -585.923 / -672.564 137.133 / 137.133 Weight last 48 hrs Weight 132.449 kg Weight 136.134 kg Weight 124.738 kg Physical Exam Narrative: EXAM NARRATIVE: General exam is a sedated white female in no obvious distress Cardiovascular regular rate and rhythm without murmur Lungs clear no wheezing or crackles. Abdomen is soft obese nontender with positive bowel sounds Extremities no cyanosis clubbing or edema Urinary Catheter Management^: Sierra: Cath Placed During This Visit: yes Urethral Indwelling: Yes Reason for Continuing Indwelling Catheter: Accurate Measurement of Urinary Output in Critically Ill Patients Urinary Catheter Date of Insertion: 08/31/19 Urinary Catheter Time of Insertion: 00:52 Data : 09/01/19 05:53 09/01/19 03:51 Micro: Microbiology 08/30/19 18:35 Blood Culture - Preliminary Blood NEGATIVE TO DATE 08/30/19 17:57 Blood Culture - Preliminary Blood NEGATIVE TO DATE A&P Assessment and plan (1) Acute respiratory failure with hypoxia and hypercapnia: Requiring ventilatory support Concerned this is related to preserved ejection fraction heart failure. Patient has been diuresed and FiO2 has been able to be weaned. Renal function is now worsening and diuresis stopped this morning. Multiple other factors need to be taken into consideration, such as pneumonia, obesity hypoventilation, underlying lung disease, possible underlying severe hypertension and obstructive sleep apnea. Secondary to groundglass appearance of CT scan this could have represented interstitial lung disease as well, although pulmonary edema was thought to be more likely. Pulmonary evaluation will be obtained. She is requiring a fair amount of FiO2 at this time in this patient with no underlying baseline oxygen need. Her most recent hospital course in [place] was complicated from what I understand was a 10 to 14-day course of ventilation Reduce IV steroids to every 12 hours Continue pulmonary toilet Status: Acute Code(s): J96.01 - Acute respiratory failure with hypoxia; J96.02 - Acute respiratory failure with hypercapnia (2) Acute encephalopathy: Currently sedated. Thought to be secondary to acute hypercapnic and hypoxic respiratory failure Status: Acute Code(s): G93.40 - Encephalopathy, unspecified (3) Hypertension: Severe elevation on admission. Discontinue her IV metoprolol. Will place her on metoprolol 25 mg twice daily per NG. Consider re-adding Norvasc if blood pressure still elevated Status: Acute Code(s): I10 - Essential (primary) hypertension (4) Prediabetes: A1c 6.2% Status: Acute Code(s): R73.03 - Prediabetes Additional A&P Information Acute diastolic heart failure. Appears compensated at this time. Hold Lasix. Acute kidney injury. Hold further Lasix at this time. Low-dose fluids. Possible pneumonia, continue Rocephin and azithromycin. history of admission at [facility] due to biliary pancreatitis back in March, with surgery, retrieval of gallstones, stent placement, subsequently stent removal 12 weeks later. reports had cardiac work-up at that time. Records requested and should be in paper chart. Lipase is low. History of possible thyroid problem, TSH is low normal. Morbid obesity, Would benefit from consideration of options for weight loss, she is out of acute episode of illness. Heparin for DVT prophylaxis Attestations Medical Necessity Statement*: Needs continued ICU stay secondary to respiratory failure requiring mechanical ventilation Critical Care Time: 36 minutes of critical care time spent reviewing ventilator care settings, overall plan of care, adjustment of medications. Coding Level of Care Code Acute Bridal Stylist Sales Consultant for Kayla Benedict Diagnoses Acute respiratory failure with hypoxia and hypercapnia J96.01; J96.02 Acute encephalopathy G93.40 Hypertension I10 Prediabetes R73.03
[2019-09-01] MEDS: sodium chloride 0.9% 1,000 ML 50 ML IV (12:39)
[2019-09-01 16:41] LABS: Glucose Point of Care 186 mg/dL (70-110)
[2019-09-01 16:52] LABS: Glucose Point of Care 211 mg/dL (70-110)
--- NOTE | 2019-09-01 17:09 | PC.CHAP ---
Pastoral Care Encounter/Spiritual Assessment Type of Contact [] Declined credit risk modeler visit [] Patient/Family/Request visit [] Outpatient visit [] Follow-up visit [] Physician referral [] Code/Alert [x] Routine visit [] Staff referral [] Actively dying [] Patient sleeping [] Family support [] [] Out of room [] Palliative care [] [] Receiving care in room [] Pre-surgical visit [] Trauma [] Long length of stay [x] ICU visit [] Other: Relational/Emotional Strength [] Patient feels connected with others/family/visitors/staff [] Distress [] Loneliness/isolation [] Abandonment Spirituality of Patient [] Person of Jennifer [] Attends Episcopal of their Jennifer [] Believes in Prayer [] Reads Bible or Denominational materials [x] There are Spiritual issues to be addressed Job Recruiter Interventions [] Prayer [x] Active listening [x] Non-anxious presence [] Spiritual/emotional support [] Crisis/trauma care [] Spiritual counseling [] Bereavement support [] Provided bereavement packet [] Provided Bible/devotional materials [] Provided toy/stuffed animal, coloring book to patient or family member [] Provided Communion [] Anointing/[place] [] Salvation [x] Completed spiritual assessment [] Other: Impact on Illness or Injury [] Angry [] Fearful [] Anxious [] Often cries [] Exhaustion [] Unable to work [] Unable to attend faith [] Unable to walk/stand [] Unable to read [] Unable to drive [] Unable to eat/drink [] Unable to sleep [] Unable to be with family [x] Patient intubated [] Other: Summary Patient was not awake at the time of visit. Family stated that they did not desire prayer and that there was nothing they needed from the chaplains. Patient was visited by Job Recruiter Alfonzo Gómez. Time spent with patient 5 minutes
[2019-09-01] MEDS: metoprolol tartrate 25 mg Tablet OG-TUBE (17:31)
[2019-09-01] MEDS: FUROsemide 10 mg/mL SDV 10mL 60 MG IVP (18:40)
[2019-09-01 18:50] LABS: Glucose Point of Care 172 mg/dL (70-110)
--- NOTE | 2019-09-01 20:03 | PM.CONSULT ---
Providers/Reason For Consult Consulting Physican/Specialty*: Pulmonary critical care medicine Reason for Consult*: Respiratory failure requiring intubation mechanical ventilation Attending Physician: Ganga Cheek MD Primary Care Provider: Radha Bagley NP History of Present Illness History of Present Illness Jennifer Glover is a 69 year old female who presented to the hospital on August 30 with acute on chronic hypoxic and hypercapnic respiratory failure. The patient initially did well with noninvasive positive pressure ventilation however subsequently she required intubation and mechanical ventilation. The patient has super morbid obesity with a BMI of 57. She most likely has obesity hypoventilation syndrome. The patient does not have a previous diagnosis of obstructive sleep apnea as she has never undergone any sleep study and does not use any noninvasive positive pressure ventilation at home. The chest x-ray in the ER is consistent with bilateral interstitial infiltrate likely secondary to acute exacerbation of heart failure. Following intubation, the patient has been receiving antibiotic therapy with ceftriaxone and azithromycin for community-acquired pneumonia. The CT angiogram obtained on initial presentation revealed bilateral groundglass opacity and bilateral pleural effusion right greater than left which is consistent with heart failure. There is no dense consolidation. An echocardiogram performed was suboptimal quality. Proper assessment of systolic and diastolic function could not be performed. However the estimated right atrial pressure was 15. The patient most likely has heart failure with preserved ejection fraction which is common in patients with obesity. The patient appears intubated on the chest x-ray obtained on the . There is loss of lung volume on the left side as well as mild shifting of the mediastinum to the left. The chest x-ray obtained today shows increased hilar fullness. I could see air bronchogram in the left lower lung zone in the retrocardiac area. I believe the patient presented with acute decompensated heart failure however after she was intubated she had developed atelectasis because of her super morbid obesity which had worsened her hypoxia. I had performed a bedside ultrasound today. The patient has bilateral B-lines predominantly in the lower lungs, no pleural effusion, the cardiac contractility appears to be normal. The patient has an IVC diameter more than 3 cm without any variation with positive pressure ventilation consistent with significantly elevated right atrial pressure. It appears that the patient was intubated in [place] recently and she was intubated for 14 days. Currently the patient is on PEEP of 12, FiO2 of 50% which I dropped to 40% and she is on volume control mechanical ventilation. Review of Systems Narrative: Unable to obtain Meds/Allergies Home Medications and Allergies Home Medications Medication Instructions Recorded Confirmed Type amlodipine 5 mg PO BID 08/30/19 08/30/19 History aspirin 81 mg PO DAILY 08/30/19 08/30/19 History ibuprofen 800 mg PO TID 08/30/19 08/30/19 History metoprolol succinate 50 mg PO DAILY 08/30/19 08/30/19 History Allergies Allergy/AdvReac Type Severity Reaction Status Date / Time No Known Allergies Allergy Verified 08/30/19 17:56 Current Medications Current Medications Generic Name Dose Route Start Last Admin Trade Name Freq PRN Reason Stop Dose Admin Albuterol/Ipratropium 3 ml 08/31/19 01:37 09/01/19 07:43 Duoneb INHALATION 3 ml Q4H.RESPIRATORY PRN Administration SHORTNESS OF BREATH Albuterol/Ipratropium 3 ml 09/01/19 12:00 09/01/19 19:58 Duoneb INHALATION 3 ml Q4H.RESPIRATORY LEON Administration Heparin Sodium (Beef Lung) 5,000 unit 08/31/19 18:00 09/01/19 17:25 Heparin SUBCUT 5,000 unit Q8H LEON Administration Hydralazine HCl 10 mg 08/31/19 00:31 09/01/19 06:19 Apresoline IVP 10 mg Q4H PRN Administration SBP>180 Ceftriaxone Sodium 1,000 mg/ 50 mls @ 100 mls/hr 08/31/19 00:45 09/01/19 08:10 Sodium Chloride IV Infused Q24H LEON Infusion Protocol Fentanyl 1,000 mcg/ Sodium 100 mls @ 0 mls/hr 08/31/19 04:30 09/01/19 18:19 Chloride IV 25 mcg/hr .Q0M LEON 2.5 mls/hr Administration Protocol Per Protocol Propofol 1,000 mg in 100 mls @ 0 mls/hr 08/31/19 05:00 09/01/19 16:41 Diprivan IV 60 mcg/kg/min .Q0M LEON 44.9 mls/hr Administration Protocol Per Protocol Azithromycin 500 mg/ Sodium 250 mls @ 250 mls/hr 09/01/19 01:00 09/01/19 08:10 Chloride IV Infused Q24H LEON Infusion Protocol Insulin Aspart 0 unit 08/31/19 08:00 09/01/19 17:24 Novolog SUBCUT 2 unit WM&BEDTIME LEON Administration Protocol Metoprolol Tartrate 25 mg 09/01/19 18:00 09/01/19 17:31 Lopressor OG-TUBE 25 mg BID LEON Administration Pantoprazole Sodium 40 mg 08/31/19 18:00 09/01/19 09:19 Protonix IVP 40 mg DAILY LEON Administration PFSH Acute PFSH: Medical History Choledocholithiasis Hypertension Pancreatitis Prediabetes Thyroid disease Surgical History History of cholecystectomy Social History Smoking and tobacco status: never smoked Vitals/I&O/Wt Last Vital Signs Temp 98.7 F 09/01/19 17:00 Pulse 78 09/01/19 20:00 Resp 16 09/01/19 20:01 BP 163/59 09/01/19 19:00 Pulse Ox 93 09/01/19 20:00 09/01/19 09/01/19 09/01/19 06:59 14:59 22:59 Intake Total 314.077 / 927.436 595.459 / 595.459 346.860 / 942.319 Output Total 900 / 1600 675 / 675 Balance -585.923 / -672.564 595.459 / 595.459 -328.140 / 267.319 Weight last 48 hrs Weight 292 lb Weight 300 lb 2 oz Physical Exam Narrative: EXAM NARRATIVE: General: The patient is intubated and sedated Neck: Unable to assess JVD properly because of the body habitus Respiratory: Auscultation: Bilateral crackles at the lung bases, no wheezing or rhonchi Cardiovascular: Regular rate and rhythm, S1-S2 present, no murmur, no right ventricular heave, no peripheral edema. Abdomen: Soft, distended from morbid obesity, positive bowel sound Musculoskeletal: No obvious joint deformity Skin: No rash Neuro: Unable to assess. Urinary Catheter Management^: Sierra: Cath Placed During This Visit: yes Urethral Indwelling: Yes Reason for Continuing Indwelling Catheter: Accurate Measurement of Urinary Output in Critically Ill Patients Urinary Catheter Date of Insertion: 08/31/19 Urinary Catheter Time of Insertion: 00:52 Data Micro: Micro: Microbiology 08/30/19 18:35 Blood Culture - Pr eliminary Blood NEGATIVE TO LYSSA E 08/30/19 17:57 Blood Culture - Pr eliminary Blood NEGATIVE TO LYSSA E Other Data: Other data: I reviewed the patient's data. The details of this is in the HPI. Creatinine is stable. I believe the patient has cardiorenal syndrome and will benefit from diuresis. It is unclear to me what is her exact fluid status. A&P Assessment and plan (1) Acute respiratory failure with hypoxia and hypercapnia: The patient most likely has obesity hypoventilation syndrome. And is currently in acute on chronic hypoxic and hypercapnic respiratory failure. The patient is currently doing well with a PEEP of 12. I believe the patient is requiring higher PEEP to counteract the thick chest wall generated positive intrathoracic pressure. I am going to start the patient on fentanyl and Precedex drip and titrate down the propofol. The plan is to overnight switch the propofol to a combination of fentanyl and Precedex and go down on the fentanyl as much as possible. We will attempt to put the patient on pressure support ventilation tomorrow morning. The patient will need higher PEEP than expected given her significantly elevated BMI. The plan is to extubate the patient on noninvasive positive pressure ventilation We will continue with the current antibiotic regimen. I have discontinued the high-dose steroid. I am going to give the patient an additional dose of diuretics. Based on her ultrasound of the inferior vena cava while she is completely passive on the ventilator the patient does not have any evidence of being volume responsive. I will follow-up tomorrow morning. I am expecting to extubate the patient tomorrow. Thank you for the consultation. Status: Acute Code(s): J96.01 - Acute respiratory failure with hypoxia; J96.02 - Acute respiratory failure with hypercapnia Coding Level of Care Code Acute Project Leader for [facility] Diagnoses Acute respiratory failure with hypoxia and hypercapnia J96.01; J96.02 Time Spent (min) 55
[2019-09-01] MEDS: propofol 1,000 MG/100 ML INJ 22.5 MG IV (21:32)
[2019-09-01 21:43] LABS: Glucose Point of Care 176 mg/dL (70-110)
[2019-09-02] VITALS (38 sets, daily range): BP systolic 130–197; BP diastolic 63–99; PULSE 61–76; RESP 12–23; TEMP 36.4–37.7; O2SAT 89–96
[2019-09-02] MEDS: cefTRIAXone 1,000 MG in sodium chloride 0.9% (plus) 50 ML 100 MG IV ×2 (00:32→23:55)
[2019-09-02] MEDS: propofol 1,000 MG/100 ML INJ 22.5 MG IV (01:03)
[2019-09-02] MEDS: azithromycin 500 MG in sodium chloride 0.9% 250 ML 250 MG IV (02:06)
[2019-09-02] MEDS: heparin 5,000 unit/mL INJ 1 mL 5000 UNIT SUBCUT ×3 (02:06→17:39)
[2019-09-02] MEDS: ipratropium-albuterol 3 mL Neb INHALATION ×6 (03:14→23:31)
[2019-09-02 04:09] LABS: Hematocrit 45.4 % (37.0-47.0); Lymphocytes # 0.8 10^3/uL (0.8-4.8); Lymphocytes % 7.9 %; Mean Corpuscular HGB Conc 28.6 g/dL (30.0-36.0); Mean Corpuscular Hemoglobin 25.7 pg (28.0-34.0); Mean Corpuscular Volume 89.9 fL (81-99); Mean Platelet Volume 11.4 fL (7.4-10.4); Monocytes # 0.7 10^3/uL (0.2-0.9); Monocytes % 6.6 %; Neutrophils # 8.6 10^3/uL (1.8-7.7); Neutrophils % 84.8 %; Nucleated Red Blood Cells % 0 %; Platelet Count 222 10^3/cmm (130-400); Red Blood Count 5.05 10^6/uL (4.1-5.3); Red Cell Distribution Width 17.5 % (12.1-15.1); White Blood Count 10.1 10^3/uL (4.0-10.0)
--- NOTE | 2019-09-02 04:09 | PC.NURSE ---
PT HAS BEEN TURNED EVERY 2-3 HOURS. BOTTOM HAS SOME REDNESS TO IT, OPTIFOAM TO BE REAPPLIED.
[2019-09-02 04:24] LABS: Anion Gap 16.4 (5-19); Blood Urea Nitrogen 45 mg/dL (8-23); Calcium 8.6 mg/dL (8.5-10.5); Carbon Dioxide 26 mmol/L (22-29); Chloride 102 mmol/L (98-107); Glomerular Filtration Rate 54.8 mL/min (90-130); Glucose 200 mg/dL (65-115); Osmolality Calculated 296 mOsm/kg (285-295); Potassium 3.4 mmol/L (3.5-5.1); Sodium 141 mmol/L (136-145)
[2019-09-02 04:37] LABS: ABG PCO2 45.2 mmHg (35-45); ABG PH Result 7.49 (7.35-7.45); Arterial Blood Gas Hematocrit 40.7 % (37-47); Base Excess ABG 9.4 mmol/L (-2.0-2.0); Blood Gas Allen Test Pos; Blood Gas Sample Site Radial, right; Blood Gas Sample Type Arterial; Blood Gas Tidal Volume 0.4; HCO3 ABG 34.1 mmol/L (22-26); Oxygen Device VENT; PO2 ABG 59.4 mmHg (80.0-100.0)
--- NOTE | 2019-09-02 06:21 | PC.NURSE ---
SHIFT SUMMARY PT HAS REMAINED INTUBATED. PT HAS BEEN SEDATED, CURRENTLY PROPOFOL IS TURNED OFF, PRECEDEX IS AT 0.7 MCG AND FENTANYL IS AT 50 MCG. PT HAS OAKES ADEQUATE URINE OUTPUT. PT LUNG REMAIN CLEAR BUT DIMINISHED, AND SON AT BEDSIDE CURRENTLY. PT ABLE TO SHAKE HEAD YES OR NO, NOW THAT PROPOFOL IS OFF.
[2019-09-02 06:44] LABS: Glucose Point of Care 167 mg/dL (70-110)
--- NOTE | 2019-09-02 07:43 | XR_ITS ---
WS: [id number] CHEST XRAY TECHNIQUE: Portable chest. CLINICAL INFORMATION: resp failure COMPARISON: September 01, 2019 FINDINGS: Tubes/Lines: Endotracheal tube with tip above the karine measuring 2.7 CM. Enteric tube with tip belo w the diaphragm. Heart: Cardiomegaly. Mild pulmonary vascular congestion. Lungs: Chronic emphysematous changes. Small left pleural effusion with left basilar atelectasis. Tiny right pleural effusion. Bones: Normal visualized bony structures. XR/XR chest 1V portable [id number] IMPRESSION: 1. Endotracheal tube with tip 2.7 cm above the karine. Enteric tube with tip b elow the diaphragm. 2. Cardiomegaly with mild pulmonary vascular congestion. 3. Small left greater than right pleural effusions with left basilar atelectas is appears slightly improved.
[2019-09-02 07:46] LABS: Glucose Point of Care 150 mg/dL (70-110)
[2019-09-02] MEDS: potassium chloride oral liq 20 mEq/15 mL UDC 60 MEQ PO (07:48)
[2019-09-02] MEDS: FUROsemide 10 mg/mL SDV 10mL 80 MG IVP (07:48)
[2019-09-02] MEDS: metoprolol tartrate 25 mg Tablet OG-TUBE ×2 (08:30→17:39)
[2019-09-02] MEDS: aspirin 81 mg Chew Tablet OG-TUBE (08:30)
[2019-09-02] MEDS: pantoprazole 40 mg SDV IVP (08:30)
--- NOTE | 2019-09-02 08:42 | PM.PN ---
Subjective Subjective: Interval history: The patient was seen and examined this morning. She is doing well. She is awake and alert and able to communicate. Currently the patient is on small dose of fentanyl and Precedex. Overnight she had good urine output with the Lasix. Her creatinine is stable. Currently the patient is on volume control mechanical ventilation with a tidal volume set at 450, respiratory rate of 12 however the patient is breathing at 21. I will switch the patient to PSV. I had given the patient another dose of Lasix this morning with good urine output. Electrolyte replacement was ordered. The plan is to keep her comfortable while I diurese her and attempt extubation later today. Overnight the patient did well on PSVT however after 3 hours or so she became tachypneic and lost her tidal volume. Which was associated with desaturation. Today the patient is documented to have a body weight of 299 pounds. Yesterday her body weight was 292 pounds. I need to identify what is her total need weight gain since her admission so that I can optimize her diuretic regimen. Vitals/I&O/Wt Last Vital Signs Temp 98.7 F 09/02/19 08:00 Pulse 73 09/02/19 08:00 Resp 15 09/02/19 08:34 BP 163/63 09/02/19 08:00 Pulse Ox 94 09/02/19 08:00 09/01/19 09/02/19 09/02/19 22:59 06:59 14:59 Intake Total 505.189 / 1100.648 709.212 / 1809.860 100 / 100 Output Total 675 / 675 1500 / 2175 Balance -169.811 / 425.648 -790.788 / -365.140 100 / 100 Weight last 48 hrs Weight 299 lb 8 oz Weight 292 lb Physical Exam Narrative: EXAM NARRATIVE: General: The patient is intubated and on sedative medications. However the patient is awake alert and able to communicate. Neck: Unable to assess JVD properly because of the body habitus Respiratory: Auscultation: Bilateral crackles at the lung bases, no wheezing or rhonchi Cardiovascular: Regular rate and rhythm, S1-S2 present, no murmur, no right ventricular heave, no peripheral edema. Abdomen: Soft, nontender, distended from morbid obesity, positive bowel sound Musculoskeletal: No obvious joint deformity Skin: No rash Neuro: Patient is awake and alert, no focal motor deficit Urinary Catheter Management^: Sierra: Cath Placed During This Visit: yes Urethral Indwelling: Yes Reason for Continuing Indwelling Catheter: Accurate Measurement of Urinary Output in Critically Ill Patients Urinary Catheter Date of Insertion: 08/31/19 Urinary Catheter Time of Insertion: 00:52 Data : 09/02/19 03:54 09/02/19 03:54 Other data: I have reviewed the patient's data. Her hemoglobin is stable as well as her WBC count. Unfortunately, the patient has developed respiratory alkalosis I did being hyperventilated. Her bicarb level is dropped to 26. This is somewhat concerning as the patient is likely to develop hypercapnic respiratory failure post extubation however she would not have the bicarb buffer that she usually has. A&P Assessment and plan (1) Acute respiratory failure with hypoxia and hypercapnia: Patient is doing better this morning. She is awake and alert. The patient has component of respiratory alkalosis. Her bicarbonate level is 26. The patient is likely to retain CO2 once she is extubated however she would not have the bicarbonate buffer that she usually has. Her baseline PCO2 is in the 60s and at baseline bicarb is close to mid 30s. I am going to put the patient on PSV so that she can fix her acid-base disorder herself. I expect the patient to have shallow breaths down the line and she will most likely hold onto CO2. I am going to review the patient later again. We will try to optimize her completely prior to extubation. She has component of cardiorenal syndrome. I am giving her additional dose of Lasix. Currently she is on 8 cm of water of PEEP. We will continue with antibiotic for the time being. I hope to extubate her tomorrow if it does not happen today. Status: Acute Code(s): J96.01 - Acute respiratory failure with hypoxia; J96.02 - Acute respiratory failure with hypercapnia Attestations Medical Necessity Statement*: Defer to the primary team Coding Level of Care Code Acute Band Cutting Machine Operator for Kayla Benedict Diagnoses Acute respiratory failure with hypoxia and hypercapnia J96.01; J96.02 Time Spent (min) 32
--- NOTE | 2019-09-02 10:06 | PC.CHAP ---
Pastoral Care Encounter/Spiritual Assessment Type of Contact [] Declined sewing teacher visit [] Patient/Family/Request visit [] Outpatient visit [] Follow-up visit [] Physician referral [] Code/Alert [x] Routine visit [] Staff referral [] Actively dying [] Patient sleeping [] Family support [] [] Out of room [] Palliative care [] [] Receiving care in room [] Pre-surgical visit [] Trauma [] Long length of stay [x] ICU visit [] Other: Relational/Emotional Strength [] Patient feels connected with others/family/visitors/staff [] Distress [] Loneliness/isolation [] Abandonment Spirituality of Patient [] Person of Jennifer [] Attends Congregational of their Jennifer [x] Believes in Prayer [] Reads Bible or Adventist materials [] There are Spiritual issues to be addressed Automobile Body Repair Chief Interventions [x] Prayer [] Active listening [] Non-anxious presence [] Spiritual/emotional support [] Crisis/trauma care [] Spiritual counseling [] Bereavement support [] Provided bereavement packet [] Provided Bible/devotional materials [] Provided toy/stuffed animal, coloring book to patient or family member [] Provided Communion [] Anointing/[place] [] Salvation [x] Completed spiritual assessment [] Other: Impact on Illness or Injury [] Angry [] Fearful [] Anxious [] Often cries [] Exhaustion [] Unable to work [] Unable to attend uatsdin [] Unable to walk/stand [] Unable to read [] Unable to drive [] Unable to eat/drink [] Unable to sleep [] Unable to be with family [] Patient intubated [] Other: Summary Time spent with patient 10 min
[2019-09-02 11:14] LABS: Glucose Point of Care 139 mg/dL (70-110)
[2019-09-02] MEDS: hyDRALAzine 20 mg/mL INJ 1 mL 10 MG IVP (11:18)
--- NOTE | 2019-09-02 11:48 | XR_ITS ---
WS: [id number] CHEST XRAY TECHNIQUE: Portable chest. CLINICAL INFORMATION: follow up COMPARISON: September 02, 2019 FINDINGS: Tubes/Lines: Endotracheal tube with tip above the karine. Enteric tube with tip below the diaphragm. Heart: Cardiomegaly with aortic calcification. Lungs: Small left greater than right pleural effusions. Improved aeration left lower lobe. Bones: Normal visualized bony structures. XR/XR chest 1V portable [id number] IMPRESSION: 1. Small left greater than right pleural effusions with improved aeration left lower lobe compared to previous. 2. Stable ETT and enteric tubes.
--- NOTE | 2019-09-02 13:21 | P.PN_ITS ---
Subjective Subjective: Interval history: Jennifer was seen earlier this morning. She was able to communicate some on the ventilator. Medications: Reviewed: Yes Vitals/I&O/Wt Last Vital Signs Temp 98.7 F 09/02/19 08:00 Pulse 76 09/02/19 12:00 Resp 21 H 09/02/19 13:10 BP 130/89 09/02/19 12:00 Pulse Ox 91 09/02/19 12:00 09/01/19 09/02/19 09/02/19 22:59 06:59 14:59 Intake Total 505.189 / 1100.648 709.212 / 1809.860 230.291 / 230.291 Output Total 675 / 675 1500 / 2175 1900 / 1900 Balance -169.811 / 425.648 -790.788 / -365.140 -1669.709 / -1669.709 Weight last 48 hrs Weight 135.851 kg Weight 132.449 kg Physical Exam Narrative: EXAM NARRATIVE: General exam is a awake white female, on the ventilator Cardiovascular regular rate and rhythm without murmur Lungs clear no wheezing or crackles. Abdomen is soft obese nontender with positive bowel sounds Extremities no cyanosis clubbing or edema Urinary Catheter Management^: Sierra: Cath Placed During This Visit: yes Urethral Indwelling: Yes Reason for Continuing Indwelling Catheter: Accurate Measurement of Urinary Output in Critically Ill Patients Urinary Catheter Date of Insertion: 08/31/19 Urinary Catheter Time of Insertion: 00:52 Data : 09/02/19 03:54 09/02/19 03:54 A&P Assessment and plan (1) Acute respiratory failure with hypoxia and hypercapnia: Requiring ventilatory support Concerned this is related to preserved ejection fraction heart failure. Patient has been diuresed and FiO2 has been able to be weaned. Renal function is now worsening and diuresis stopped this morning. Multiple other factors need to be taken into consideration, such as pneumonia, obesity hypoventilation, underlying lung disease, possible underlying severe hypertension and obstructive sleep apnea. Secondary to groundglass appearance of CT scan this could have represented interstitial lung disease as well, although pulmonary edema was thought to be more likely. Pulmonary evaluation has been obtained. Several repeat doses of diuretics have been given and the intention is to extubate to BiPAP today. Steroids have been discontinued by pulmonary Continue pulmonary toilet Continue Rocephin, azithromycin Sedation has been changed to Precedex Status: Acute Code(s): J96.01 - Acute respiratory failure with hypoxia; J96.02 - Acute respiratory rohan lure with hypercapnia (2) Acute encephalopathy: Currently sedated. Thought to be secondary to acute hypercapnic and hypoxic respiratory failure Status: Acute Code(s): G93.40 - Encephalopathy, unspecified (3) Hypertension: Severe elevation on admission. Continue metoprolol Status: Acute Code(s): I10 - Essential (primary) hypertension (4) Prediabetes: A1c 6.2% Status: Acute Code(s): R73.03 - Prediabetes Additional A&P Information Acute diastolic heart failure. Appears compensated at this time. Received several doses of Lasix since yesterday afternoon to facilitate extubation Acute kidney injury. Creatinine stable. Urine output adequate. Possible pneumonia, continue Rocephin and azithromycin. history of admission at [facility] due to biliary pancreatitis back in [facility], with surgery, retrieval of gallstones, stent placement, subsequently stent removal 12 weeks later. reports had cardiac work-up at that time. Records requested and should be in paper chart. Lipase is low. History of possible thyroid problem, TSH is low normal. Morbid obesity, Would benefit from consideration of options for weight loss, she is out of acute episode of illness. Heparin for DVT prophylaxis Attestations Medical Necessity Statement*: Needs continued hospitalization in the ICU secondary to respiratory failure requiring mechanical ventilation. 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
--- NOTE | 2019-09-02 13:36 | PC.SOCIAL ---
IM follow up explained and given to patient. No questions
--- NOTE | 2019-09-02 13:51 | PC.SOCIAL ---
IM FOLLOW UP PROVIDED TO DAUGHTER AND EXPLAINED. NO QUESTIONS VOICED.
[2019-09-02 14:45] LABS: Anion Gap 15.1 (5-19); Blood Urea Nitrogen 39 mg/dL (8-23); Carbon Dioxide 32 mmol/L (22-29); Chloride 101 mmol/L (98-107); Glomerular Filtration Rate 70.9 mL/min (90-130); Glucose 171 mg/dL (65-115); Magnesium 2.5 mg/dL (1.7-2.3); Osmolality Calculated 302 mOsm/kg (285-295); Potassium 3.1 mmol/L (3.5-5.1); Sodium 145 mmol/L (136-145)
[2019-09-02 17:08] LABS: Glucose Point of Care 119 mg/dL (70-110)
[2019-09-02] MEDS: HYDROcodone-acetaminophen 5-325 mg Tablet 1 TAB PO (18:48)
[2019-09-03] VITALS (19 sets, daily range): BP systolic 160–193; BP diastolic 61–85; PULSE 70–93; RESP 16–26; TEMP 36.5–36.9; O2SAT 89–95
--- NOTE | 2019-09-03 00:01 | PC.NURSE ---
Addendum entered by Bette Solares RN 09/03/19 00:27: Witnessed waste of 92ML of Fentanyl. Original Note: 92 MLS OF FENTANYL WASTED WITH BETTE WHITAKER. WASTED IN IV SPREAD SHEET WELL.
[2019-09-03] MEDS: HYDROcodone-acetaminophen 5-325 mg Tablet 1 TAB PO ×3 (01:30→16:45)
[2019-09-03] MEDS: azithromycin 500 MG in sodium chloride 0.9% 250 ML 250 MG IV (01:30)
[2019-09-03] MEDS: heparin 5,000 unit/mL INJ 1 mL 5000 UNIT SUBCUT ×3 (01:30→17:39)
[2019-09-03] MEDS: ipratropium-albuterol 3 mL Neb INHALATION ×5 (03:26→20:24)
[2019-09-03 04:29] LABS: Basophils % 0.1 %; Eosinophils % 0.2 %; Hematocrit 42.4 % (37.0-47.0); Hemoglobin 12.6 g/dL (11.5-15.3); Lymphocytes # 1.7 10^3/uL (0.8-4.8); Lymphocytes % 13.9 %; Mean Corpuscular HGB Conc 29.7 g/dL (30.0-36.0); Mean Corpuscular Hemoglobin 24.8 pg (28.0-34.0); Mean Corpuscular Volume 83.3 fL (81-99); Mean Platelet Volume 11.8 fL (7.4-10.4); Monocytes # 0.9 10^3/uL (0.2-0.9); Monocytes % 7.4 %; Neutrophils # 9.5 10^3/uL (1.8-7.7); Neutrophils % 77.9 %; Nucleated Red Blood Cells % 0 %; Platelet Count 225 10^3/cmm (130-400); Red Blood Count 5.09 10^6/uL (4.1-5.3); Red Cell Distribution Width 17.1 % (12.1-15.1); White Blood Count 12.2 10^3/uL (4.0-10.0)
[2019-09-03 04:54] LABS: Anion Gap 15.6 (5-19); Blood Urea Nitrogen 33 mg/dL (8-23); Calcium 8.7 mg/dL (8.5-10.5); Carbon Dioxide 30 mmol/L (22-29); Chloride 105 mmol/L (98-107); Glomerular Filtration Rate 82.7 mL/min (90-130); Glucose 108 mg/dL (65-115); Osmolality Calculated 302 mOsm/kg (285-295); Potassium 3.6 mmol/L (3.5-5.1); Sodium 147 mmol/L (136-145)
--- NOTE | 2019-09-03 06:09 | PC.NURSE ---
SHIFT SUMMARY PT HAS REMAINED ALERT AND ORIENTATED. PT HAS HAD ADEQUATE URINE OUTPUT. PT HAS HAD SOME LOOSE BOWEL MOVEMENTS. PT HAS HAD SOME PO INTAKE AND HER STOMACH BECAME UPSET SO PT DIDNT HAVE ANYTHING ELSE. PT IS FAIRLY ANXIOUS THIS MORNING, WANTING AT BEDSIDE. NURSE CALLED AND REASSURED PT THAT IS COMING THIS MORNING. PT RECEIVED A PAIN PILL FOR LEG PAIN, PT STATES HER LEGS HURT CHRONICALLY.
[2019-09-03 06:46] LABS: Glucose Point of Care 80 mg/dL (70-110)
[2019-09-03 06:57] LABS: Glucose Point of Care 106 mg/dL (70-110)
[2019-09-03] MEDS: aspirin 81 mg EC Tablet PO (08:41)
[2019-09-03] MEDS: metoprolol tartrate 25 mg Tablet OG-TUBE (08:41)
[2019-09-03] MEDS: pantoprazole 40 mg SDV IVP (08:41)
[2019-09-03] MEDS: FUROsemide 40 mg Tablet PO ×2 (08:41→16:43)
--- NOTE | 2019-09-03 08:59 | P.PN_ITS ---
Subjective Subjective: Interval history: Jennifer reports she feels much better. She is not short of breath currently. She relates she could not tolerate BiPAP last night. I tried to encourage her to try this again tonight. She had previously canceled sleep study scheduled for her concerning her sleep apnea. Medications: Reviewed: Yes Vitals/I&O/Wt Last Vital Signs Temp 97.8 F 09/03/19 01:50 Pulse 91 09/03/19 07:47 Resp 22 H 09/03/19 07:47 BP 168/70 09/03/19 07:01 Pulse Ox 92 09/03/19 07:47 09/02/19 09/03/19 09/03/19 22:59 06:59 14:59 Intake Total 356.79 / 654.291 420 / 1074.291 Output Total 1250 / 3150 600 / 3750 Balance -893.21 / -2495.709 -180 / -2675.709 Weight last 48 hrs Weight 134.717 kg Weight 135.851 kg Physical Exam Narrative: EXAM NARRATIVE: General exam conversant, with no complaints Cardiovascular regular rate and rhythm without murmur Lungs clear no wheezing or crackles. Diminished breath sounds is noted bilaterally Abdomen is soft obese nontender with positive bowel sounds Extremities no cyanosis clubbing or edema Urinary Catheter Management^: Sierra: Cath Placed During This Visit: yes Urethral Indwelling: Yes Reason for Continuing Indwelling Catheter: Accurate Measurement of Urinary Output in Critically Ill Patients Urinary Catheter Date of Insertion: 08/31/19 Urinary Catheter Time of Insertion: 00:52 Data : 09/03/19 03:58 09/03/19 03:58 A&P Assessment and plan (1) Acute respiratory failure with hypoxia and hypercapnia: Extubated yesterday. Greatly appreciate pulmonary's help Etiology of respiratory failure multifactorial including obesity hypoventilation, restrictive lung disease, untreated sleep apnea, possible pneumonia. Continue Lasix 40 mg twice daily. Monitor electrolytes closely. She is significantly improved with diuresis. Renal function has not worsened. Continue pulmonary toilet Status: Acute Code(s): J96.01 - Acute respiratory failure with hypoxia; J96.02 - Acute respiratory failure with hypercapnia (2) Acute encephalopathy: Resolved. Secondary to hypercapnic respiratory failure Status: Acute Code(s): G93.40 - Encephalopathy, unspecified (3) Hypertension: Continue metoprolol Add back Norvasc 5 mg daily Lasix 40 mg twice daily initiated Status: Acute Code(s): I10 - Essential (primary) hypertension (4) Prediabetes: A1c 6.2% Status: Acute Code(s): R73.03 - Prediabetes Additional A&P Information Acute diastolic heart failure. Currently compensated. Lasix 40 mg twice daily initiated. Acute kidney injury. Creatinine stable. Urine output adequate. Significant diuresis over the last 24 hours Possible pneumonia, continue Rocephin and azithromycin. history of admission at [facility] due to biliary pancreatitis back in March, with surgery, retrieval of gallstones, stent placement, subsequently stent removal 12 weeks later. reports had cardiac work-up at that time. Records requested and should be in paper chart. Lipase is low. History of possible thyroid problem, TSH is low normal. Morbid obesity, Would benefit from consideration of options for weight loss, she is out of acute episode of illness. Heparin for DVT prophylaxis Discontinue Sierra catheter May transfer out of ICU Attestations Medical Necessity Statement*: Needs continued hospitalization, for close monit oring following recovery of respiratory failure. 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
[2019-09-03] MEDS: amlodipine 5 mg Tablet PO (09:23)
--- NOTE | 2019-09-03 10:11 | PC.CHAP ---
Pastoral Care Encounter/Spiritual Assessment Type of Contact [] Declined nursing program chair visit [] Patient/Family/Request visit [] Outpatient visit [] Follow-up visit [] Physician referral [] Code/Alert [x] Routine visit [] Staff referral [] Actively dying [] Patient sleeping [] Family support [] [] Out of room [] Palliative care [] [] Receiving care in room [] Pre-surgical visit [] Trauma [] Long length of stay [x] ICU visit [] Other: Relational/Emotional Strength [] Patient feels connected with others/family/visitors/staff [] Distress [] Loneliness/isolation [] Abandonment Spirituality of Patient [] Person of Jennifer [] Attends Restorationist of their Jennifer [x] Believes in Prayer [] Reads Bible or Restorationist materials [] There are Spiritual issues to be addressed Glass Enamel Mixer Interventions [x] Prayer [] Active listening [] Non-anxious presence [] Spiritual/emotional support [] Crisis/trauma care [] Spiritual counseling [] Bereavement support [] Provided bereavement packet [] Provided Bible/devotional materials [] Provided toy/stuffed animal, coloring book to patient or family member [] Provided Communion [] Anointing/Marion [] Salvation [x] Completed spiritual assessment [] Other: Impact on Illness or Injury [] Angry [] Fearful [] Anxious [] Often cries [] Exhaustion [] Unable to work [] Unable to attend rastafari [] Unable to walk/stand [] Unable to read [] Unable to drive [] Unable to eat/drink [] Unable to sleep [] Unable to be with family [] Patient intubated [] Other: discomfort with oxygen tube, asked for nurse to assist. Summary Patient resting good. Time spent with patient 10min
[2019-09-03 11:32] LABS: Glucose Point of Care 98 mg/dL (70-110)
[2019-09-03] MEDS: hyDRALAzine 20 mg/mL INJ 1 mL 10 MG IVP ×2 (15:01→20:08)
[2019-09-03 15:13] LABS: Glucose Point of Care 100 mg/dL (70-110)
[2019-09-03 17:12] LABS: Glucose Point of Care 109 mg/dL (70-110)
[2019-09-03] MEDS: metoprolol tartrate 25 mg Tablet PO (17:39)
[2019-09-03 20:52] LABS: Glucose Point of Care 152 mg/dL (70-110)
[2019-09-03] MEDS: cefTRIAXone 1,000 MG in sodium chloride 0.9% (plus) 50 ML 100 MG IV (23:51)
[2019-09-04] VITALS (17 sets, daily range): BP systolic 147–196; BP diastolic 64–73; PULSE 59–92; RESP 18–22; TEMP 36.7–37; O2SAT 91–94; BMI 58.0
[2019-09-04] MEDS: ipratropium-albuterol 3 mL Neb INHALATION ×6 (00:21→23:51)
[2019-09-04] MEDS: azithromycin 500 MG in sodium chloride 0.9% 250 ML 250 MG IV (01:06)
[2019-09-04] MEDS: heparin 5,000 unit/mL INJ 1 mL 5000 UNIT SUBCUT ×3 (01:11→18:02)
[2019-09-04] MEDS: hyDRALAzine 20 mg/mL INJ 1 mL 10 MG IVP (03:15)
[2019-09-04] MEDS: HYDROcodone-acetaminophen 5-325 mg Tablet 1 TAB PO ×2 (04:34→14:34)
[2019-09-04 05:37] LABS: Anion Gap 14.8 (5-19); Blood Urea Nitrogen 20 mg/dL (8-23); Calcium 8.9 mg/dL (8.5-10.5); Carbon Dioxide 32 mmol/L (22-29); Chloride 104 mmol/L (98-107); Glomerular Filtration Rate 98.8 mL/min (90-130); Glucose 127 mg/dL (65-115); Osmolality Calculated 302 mOsm/kg (285-295); Potassium 3.8 mmol/L (3.5-5.1); Sodium 147 mmol/L (136-145)
[2019-09-04 06:51] LABS: Glucose Point of Care 122 mg/dL (70-110)
[2019-09-04 07:11] LABS: Glucose Point of Care 100 mg/dL (70-110)
[2019-09-04] MEDS: aspirin 81 mg EC Tablet PO (09:06)
[2019-09-04] MEDS: amlodipine 10 mg Tablet PO (09:06)
[2019-09-04] MEDS: metoprolol tartrate 25 mg Tablet PO ×2 (09:07→18:02)
[2019-09-04] MEDS: pantoprazole DR 40 mg Tablet PO (09:07)
[2019-09-04] MEDS: FUROsemide 40 mg Tablet PO ×2 (09:07→14:35)
--- NOTE | 2019-09-04 10:27 | PM.PN ---
Subjective Subjective: Interval history: Jennifer reports she is doing okay. She feels like her breathing is and has improved even since yesterday. She is worried about going directly home and believes she may benefit from rehabilitation. Medications: Reviewed: Yes Vitals/I&O/Wt Last Vital Signs Temp 98.4 F 09/04/19 08:00 Pulse 79 09/04/19 10:02 Resp 18 09/04/19 09:56 BP 147/67 09/04/19 08:00 Pulse Ox 91 09/04/19 09:56 09/03/19 09/04/19 09/04/19 22:59 06:59 14:59 Intake Total 120 / 220 780 / 1000 240 / 240 Output Total 450 / 1000 550 / 1550 Balance -330 / -780 230 / -550 240 / 240 Weight last 48 hrs Weight 134.717 kg Weight 134.717 kg Physical Exam Narrative: EXAM NARRATIVE: General exam conversant, seems happy today Cardiovascular regular rate and rhythm without murmur Lungs clear no wheezing or crackles. Abdomen is soft obese nontender with positive bowel sounds Extremities no cyanosis clubbing or edema Urinary Catheter Management^: Sierra: Cath Placed During This Visit: yes, but has since been removed by the nurse Urethral Indwelling: Yes Reason for Continuing Indwelling Catheter: Accurate Measurement of Urinary Output in Critically Ill Patients Urinary Catheter Date of Insertion: 08/31/19 Urinary Catheter Time of Insertion: 00:52 Date Urinary Catheter Removed: 09/02/19 Time Urinary Catheter Discontinued: 15:58 Data : 09/03/19 03:58 09/04/19 04:57 A&P Assessment and plan (1) Acute respiratory failure with hypoxia and hypercapnia: Extubated . Greatly appreciate pulmonary's help Etiology of respiratory failure multifactorial including obesity hypoventilation, restrictive lung disease, untreated sleep apnea, possible pneumonia. Continue Lasix 40 mg twice daily. Renal function continues to be stable Continue pulmonary toilet Status: Acute Code(s): J96.01 - Acute respiratory failure with hypoxia; J96.02 - Acute respiratory failure with hypercapnia (2) Acute encephalopathy: Resolved. Secondary to hypercapnic respiratory failure Status: Acute Code(s): G93.40 - Encephalopathy, unspecified (3) Hypertension: Continue metoprolol Norvasc has been increased to 10 mg with improved blood pressure control Lasix 40 mg twice daily initiated Status: Acute Code(s): I10 - Essential (primary) hypertension (4) Prediabetes: A1c 6.2% Status: Acute Code(s): R73.03 - Prediabetes Additional A&P Information Acute diastolic heart failure. Currently compensated. Lasix 40 mg twice daily initiated. Acute kidney injury. Creatinine stable. Urine output adequate. Significant diuresis over the last 24 hours Possible pneumonia, continue Rocephin and azithromycin. history of admission at [facility] due to biliary pancreatitis back in March, with surgery, retrieval of gallstones, stent placement, subsequently stent removal 12 weeks later. reports had cardiac work-up at that time. Records requested and should be in paper chart. Lipase is low. History of possible thyroid problem, TSH is low normal. Morbid obesity, Would benefit from consideration of options for weight loss, she is out of acute episode of illness. Heparin for DVT prophylaxis Discontinue Sierra catheter No need for laboratory tomorrow I suspect she can be discharged from the hospital tomorrow. She is considering skilled care. Attestations Medical Necessity Statement*: Needs continued hospitalization for IV antibiotics related to pneumonia Coding Level of Care Code Acute Facilities Clerk for [facility] Fwd Diagnoses Acute respiratory failure with hypoxia and hypercapnia J96.01; J96.02 Acute encephalopathy G93.40 Hypertension I10 Prediabetes R73.03
[2019-09-04 11:52] LABS: Glucose Point of Care 129 mg/dL (70-110)
[2019-09-04 17:52] LABS: Glucose Point of Care 91 mg/dL (70-110)
[2019-09-04 21:25] LABS: Glucose Point of Care 112 mg/dL (70-110)
[2019-09-04] MEDS: cefTRIAXone 1,000 MG in sodium chloride 0.9% (plus) 50 ML 100 MG IV (23:55)
[2019-09-05] VITALS (13 sets, daily range): BP systolic 138–165; BP diastolic 54–78; PULSE 75–88; RESP 17–20; TEMP 36.7–37.1; O2SAT 85–97
[2019-09-05] MEDS: azithromycin 500 MG in sodium chloride 0.9% 250 ML 250 MG IV (00:52)
[2019-09-05] MEDS: heparin 5,000 unit/mL INJ 1 mL 5000 UNIT SUBCUT ×2 (02:32→09:31)
[2019-09-05] MEDS: HYDROcodone-acetaminophen 5-325 mg Tablet 1 TAB PO ×2 (02:36→09:44)
[2019-09-05] MEDS: ipratropium-albuterol 3 mL Neb INHALATION ×4 (04:03→16:30)
[2019-09-05 06:44] LABS: Glucose Point of Care 97 mg/dL (70-110)
[2019-09-05] MEDS: FUROsemide 40 mg Tablet PO ×2 (08:01→15:26)
[2019-09-05] MEDS: aspirin 81 mg EC Tablet PO (09:27)
[2019-09-05] MEDS: amlodipine 10 mg Tablet PO (09:28)
[2019-09-05] MEDS: metoprolol tartrate 25 mg Tablet PO (09:29)
[2019-09-05] MEDS: pantoprazole DR 40 mg Tablet PO (09:30)
[2019-09-05 11:41] LABS: Glucose Point of Care 139 mg/dL (70-110)
--- NOTE | 2019-09-05 16:02 | P.DS_ITS ---
Discharge Providers Date of Admission: 08/30/19 22:21 Date of Discharge: September 05, 2019 Attending Provider at Admission: Shea Chang MD Attending Provider at Discharge: Ganga Cheek MD Primary Care Provider: Radha Bagley NP Diagnoses at Discharge Discharge Diagnosis (1) Acute respiratory failure with hypoxia and hypercapnia: Status: Acute Problem details: Resolved (2) Acute encephalopathy: Status: Acute Problem details: Resolved (3) Hypertension: Status: Acute Problem details: Improved control (4) Prediabetes: Status: Acute Problem details: Increase exercise Reason for Visit Reason for Visit: Reason For Visit: SOB Hospital Course Hospital Course: Jennifer is a 69-year-old white female who presented to the hospital with dyspnea. This was multifactorial but seem to be predominantly secondary to acute diastolic heart failure. She required endotracheal intubation, and mechanical ventilation. Pulmonary was consulted secondary to her previous history of significant difficulty with extubation. She received steroids, pulmonary toilet, and diuresis. With this her condition improved and she was able to be extubated on September 02. From that point on she steadily improved. It was thought she might benefit from BiPAP as she likely has undiagnosed sleep apnea, obesity hypoventilation, and possibly an element of COPD as her blood indicated significant hypercarbia. Unfortunately, the patient refused BiPAP the last 3 days of her hospital stay. Considering this it is not likely it would be of significant benefit in her case. Physical Exam Narrative: EXAM NARRATIVE: General exam no apparent distress Cardiovascular regular rate and rhythm Lungs clear but with diminished breath sounds at the bases Abdomen is obese soft with positive bowel sounds Extremities no cyanosis clubbing or edema Urinary Catheter Management^: Sierra: Cath Placed During This Visit: yes, but has since been removed by the nurse Urethral Indwelling: Yes Reason for Continuing Indwelling Catheter: Accurate Measurement of Urinary Output in Critically Ill Patients Urinary Catheter Date of Insertion: 08/31/19 Urinary Catheter Time of Insertion: 00:52 Date Urinary Catheter Removed: 09/02/19 Time Urinary Catheter Discontinued: 15:58 Discharge Data Data Completed and Pending: Completed Studies During Hospitalization Category Date Time Status CT angio chest PE protcl 78220 Urge nt Cat Scan 08/30/19 19:06 Completed XR chest 1V bebeto ble [id number] Routine Exams 08/31/19 09:32 Completed XR chest 1V bebeto ble 85000 Routine Exams 09/01/19 06:00 Completed XR chest 1V bebeto ble [id number] Routine Exams 09/02/19 07:43 Completed XR chest 1V bebeto ble [id number] Routine Exams 09/02/19 11:48 Completed XR chest 1V bebeto ble [id number] Stat Exams 08/31/19 04:58 Completed XR chest 1V bebeto ble 71351 Urgent Exams 08/30/19 17:50 Completed CV echo complete* [id number] Routine Ultrasound 08/31/19 00:31 Completed Labs from last 24 hours 09/05/19 09/05/19 09/04/19 11:08 06:30 21:13 POC Glucose 139 97 112 09/04/19 16:47 POC Glucose 91 Vitals: Last Vital Signs Temp 98.0 F 09/05/19 11:53 Pulse 82 09/05/19 12:13 Resp 18 09/05/19 12:13 BP 160/60 09/05/19 11:53 Pulse Ox 93 09/05/19 12:13 Discharge Plan Discharge Patient Disposition: Xfer SNF Condition: Stable Prescriptions: New budesonide [Pulmicort] 0.5 mg/2 mL suspension for nebulization 2 ml INHALATION BID Qty: 60 RF: 0 cefdinir 300 mg capsule 300 mg PO Q12H 5 Days Qty: 10 RF: 0 furosemide 40 mg Tablet 40 mg PO BID@08,16 Qty: 60 RF: 0 pantoprazole 40 mg Tablet,Delayed Release (Dr/Ec) 40 mg PO DAILY Qty: 30 RF: 0 metoprolol tartrate 25 mg Tablet 25 mg PO BID Qty: 60 RF: 0 ipratropium-albuterol 0.5 mg-3 mg(2.5 mg base)/3 mL solution for nebulization 3 ml INHALATION QID PRN (Reason: shortness of breath or wheezing) Qty: 180 RF: 0 Continued amlodipine 5 mg tablet 5 mg PO BID RF: 0 aspirin 81 mg Tablet,Chewable 81 mg PO DAILY RF: 0 Discontinued ibuprofen 800 mg tablet 800 mg PO TID RF: 0 metoprolol succinate 25 mg tablet extended release 24 hr 50 mg PO DAILY RF: 0 Discharge Orders: Discharge Order (Routine); Ordered 09/05/19 Ordered By: Ganga Cheek Referrals: Radha Bagley NP [Primary Care Provider] - 2 weeks Zully Zavala MD [Physician] - 2 weeks Discharge Diet: Cardiac Discharge Activity: Increase activity as tolerated Activity Restrictions/Additional Instructions: Oxygen 3 L per nasal cannula titrate for saturation 90% or greater Low-salt diet Take all medicine as prescribed CBC, BMP in 3 days. Discharge Attestations Time Spent in Discharge Care*: greater than 30 min Quality Metrics Clinical Quality Measures During this hospital stay, did patient experience: None Coding Level of Care Code Acute [employer] for [employer] Fwd Diagnoses Acute respiratory failure with hypoxia and hypercapnia J96.01; J96.02 Acute encephalopathy G93.40 Hypertension I10 Prediabetes R73.03
[2019-09-05 16:35] LABS: Glucose Point of Care 129 mg/dL (70-110)
--- NOTE | 2019-09-05 17:02 | PC.NURSE ---
Discharge Report called to Dalia santiago at [facility]. Nurse verbalized understanding of discharge information and did not have any further questions.
--- NOTE | 2019-09-05 17:12 | PC.NURSE ---
Discharge packet and narcotic script sent with patient. is driving patient to SNF.
== END 2019-09-05 17:16 | disposition skilled nursing facility (03) | DRG 208 ==
LOC: ER 19:47 → ICU 22:38 → MEDSURG 09-03 14:29
PROVIDERS: Emergency Medicine; Internal Medicine; Internal Medicine Critical Care Medicine; Admitting Provider Student in an Organized Health Care Education/Training Program; Emergency Provider Emergency Medicine; Family Provider Nurse Practitioner; PCP Nurse Practitioner; Visit Provider Internal Medicine
DX: J96.01 Acute respiratory failure with hypoxia (principal); I50.31 Acute diastolic (congestive) heart failure; J18.9 Pneumonia, unspecified organism; G93.40 Encephalopathy, unspecified; I16.1 Hypertensive emergency; E66.2 Morbid (severe) obesity with alveolar hypoventilation; Z68.43 Body mass index [BMI] 50.0-59.9, adult; J96.02 Acute respiratory failure with hypercapnia; I11.0 Hypertensive heart disease with heart failure; Z90.49 Acquired absence of other specified parts of digestive tract; M54.9 Dorsalgia, unspecified; R73.03 Prediabetes; Z79.82 Long term (current) use of aspirin; E07.9 Disorder of thyroid, unspecified
CPT/HCPCS: 12345; 36415; 36416; 36600; 51702; 71045; 71275; 80048; 80051; 80053; 81001; 82150; 82803; 82810; 82962; 83036; 83605; 83690; 83735; 83880; 83986; 84145; 84443; 84484; 85025; 85378; 85610; 87040; 87804; 93005; 93306; 94002; 94003; 94640; 94660; 94799; 96372; 96375; 97110; 97163; 97166; 97530; 97535; 99284; A4570; A9281; C9113; J0330; J0360; J0456; J0696; J1644; J1815; J1940; J2250; J2270; J2310; J2405; J2704; J2930; J3010; J3490; J7030; J7050; Q9967

== ENCOUNTER 2019-09-29 20:00 | Outpatient (CLI) | payer MEDICARE, SELFPAY | END 2019-09-29 20:01 | disposition home or self-care (01) | LOC: SLEEP 09-30 09:16 | PROVIDERS: Family Provider Nurse Practitioner; PCP Nurse Practitioner; Visit Provider Nurse Practitioner | DX: G47.30 Sleep apnea, unspecified (principal) | CPT/HCPCS: 95810 ==

== ENCOUNTER 2024-07-11 11:46 | Outpatient (CLI) | payer MEDICARE, SELFPAY ==
--- NOTE | 2024-07-11 12:01 | XRR_ITS ---
PROCEDURE INFORMATION: Exam: XR Chest Exam date and time: 07/11/2024 12:37 PM Age: 74 years old Clinical indication: Cough; Additional info: Chronic cough; [place] wants her to get cxr, has chronic lung disease; Oxygen dependent TECHNIQUE: Imaging protocol: Radiologic exam of the chest. Views: 2 views. COMPARISON: CR XR chest 1V portable [id number] 09/02/2019 12:04 PM FINDINGS: Lungs: Bilateral indistinct peribronchovascular opacities. Bilateral perihilar fullness. Left mid lung opacity Pleural spaces: Unremarkable. No pleural effusion. No pneumothorax. Heart/Mediastinum: Enlarged cardiac silhouette Bones/joints: Bilateral narrowing of the glenohumeral joints without subchondral sclerosis. Chronic multilevel degenerative changes of the thoracic vertebrae. XR/XR chest 2V* [id number] IMPRESSION: 1. Mild pulmonary edema, and atelectasis. 2. Left mid lung opacity measuring 1.3 centimeters 3. Enlarged cardiac silhouette
== END 2024-07-11 11:47 | disposition home or self-care (01) ==
LOC: RAD 11:48
PROVIDERS: Family Provider Nurse Practitioner; PCP Family Medicine; Visit Provider Family Medicine
DX: R91.8 Other nonspecific abnormal finding of lung field (principal); J98.11 Atelectasis; I51.7 Cardiomegaly; M51.34 Other intervertebral disc degeneration, thoracic region; R05.9 Cough, unspecified
CPT/HCPCS: 71046

== ENCOUNTER 2024-07-21 14:16 | Outpatient (CLI) | payer MEDICARE, SELFPAY ==
--- NOTE | 2024-07-21 14:45 | CT_ITS ---
WS: [id number] CT chest wo con [id number] HISTORY: L mid lung opacity on CXR; SOB TECHNIQUE: Axial imaging performed through the thorax. Coronal and sagittal reformats are submitted. All CT scans at [facility] use at least one of these dose optimization techniques: automated exposure control; mA and/or kV adjustment per patient size (includes targeted exams where dose is mat ched to clinical indication); or iterative reconstruction. CONTRAST: Omnipaque 350; 100 mL IV. DLP: 617.22 mGy.cm COMPARISON: Chest radiograph 07/11/2024, prior CT 08/30/2019 Lungs and central airway: Lung volumes are decreased due to poor inspiration. Motion artifact. Lungs appear better aerated as compared to the prior chest radiograph. The focal opacification in the centr al LEFT lung does not correspond to a mass or nodule. This may've been an area of atelectasis or pneu monia that has since improved. Mild groundglass attenuation. Pleura: Normal. No pleural effusion. Heart and pericardium: Mild cardiomegaly. Mediastinum and jerilyn: No adenopathy identified on this unenhanced exam. There are small mediastinal a nd hilar lymph nodes. Vessels: Moderate dilatation of the pulmonary artery. Mild atherosclerosis aorta. Chest wall and lower neck: Enlarged substernal thyroid. Upper abdomen: Prior cholecystectomy. RIGHT adrenal adenoma measures 1.2 cm. Granulomata within the s pleen. Osseous structures: Mild increase in thoracic kyphosis. CT/CT chest wo con [id number] IMPRESSION: 1. No residual mid LEFT lung opacification is noted on a prior chest radiograp h. This may've been an area of pneumonitis or atelectasis that has since improv ed. 2. No pneumonia. 3. Mild cardiomegaly. 4. Dilated pulmonary artery. 5. Prior cholecystectomy. 6. RIGHT adrenal adenoma.
[2024-07-21 14:51] LABS: Basophils % 0.3 %; Eosinophils # 0.2 10^3/uL (0.0-0.8); Eosinophils % 2.1 %; Hematocrit 38.7 % (36-47); Lymphocytes # 1.4 10^3/uL (0.8-4.8); Lymphocytes % 13.3 %; Mean Corpuscular HGB Conc 29.7 g/dL (30-55); Mean Corpuscular Hemoglobin 23.3 pg (27-33); Mean Corpuscular Volume 78.3 fl (85-98); Mean Platelet Volume 11.5 fL (7.4-10.4); Monocytes # 0.7 10^3/uL (0.2-0.9); Monocytes % 6.5 %; Neutrophils # 8.14 10^3/uL (1.8-7.7); Neutrophils % 77.2 %; Nucleated Red Blood Cells % 0 %; Platelet Count 281 10^3/cmm (157-399); Red Blood Count 4.94 10^6/uL (3.85-5.65); Red Cell Distribution Width 15.8 % (12.1-15.1); White Blood Count 10.53 10^3/uL (3.29-11.43)
[2024-07-21 15:06] LABS: Alanine Aminotransferase 15 U/L (0-33); Alkaline Phosphatase 109 U/L (35-105); Anion Gap 16.1 (5-19); Aspartate Amino Transferase 12 U/L (0-32); Blood Urea Nitrogen 20 mg/dL (8-23); Calcium 9.6 mg/dL (8.5-10.5); Carbon Dioxide 28 mmol/L (22-29); Chloride 102 mmol/L (98-107); Globulin 3.2 g/dL (1.3-4.6); Glucose 126 mg/dL (65-115); Osmolality Calculated 298 mOsm/kg (285-295); Potassium 4.1 mmol/L (3.5-5.1); Sodium 142 mmol/L (136-145); Total Bilirubin 0.5 mg/dL (0.15-1.2); Total Protein 7.2 g/dL (6.6-8.7)
== END 2024-07-21 14:17 | disposition home or self-care (01) ==
LOC: RAD 14:20
PROVIDERS: Family Provider Nurse Practitioner; PCP Family Medicine; Visit Provider Family Medicine
DX: R91.8 Other nonspecific abnormal finding of lung field (principal); R05.9 Cough, unspecified; I51.7 Cardiomegaly; I28.1 Aneurysm of pulmonary artery; Z90.49 Acquired absence of other specified parts of digestive tract; D35.01 Benign neoplasm of right adrenal gland; R59.9 Enlarged lymph nodes, unspecified; I70.0 Atherosclerosis of aorta; E04.8 Other specified nontoxic goiter; R93.89 Abnormal findings on diagnostic imaging of other specified body structures; M40.294 Other kyphosis, thoracic region
CPT/HCPCS: 36415; 71250; 80053; 85025

== ENCOUNTER → 2024-10-21 11:51 | Outpatient (BNVA) | payer MEDICARE, SELFPAY | PROVIDERS: Family Provider Nurse Practitioner; PCP Family Medicine; Visit Provider Family Medicine | DX: I15.8 Other secondary hypertension (principal); I48.21 Permanent atrial fibrillation; E78.2 Mixed hyperlipidemia; R73.03 Prediabetes; J98.4 Other disorders of lung; E66.9 Obesity, unspecified; R60.0 Localized edema | CPT/HCPCS: 80053; 82607; 83036; 84439; 84443; 85025 ==

== ENCOUNTER → 2025-01-20 11:27 | Outpatient (BNVA) | payer MEDICARE, SELFPAY | PROVIDERS: PCP Family Medicine; Visit Provider Family Medicine | DX: I15.8 Other secondary hypertension (principal); R73.03 Prediabetes; E78.2 Mixed hyperlipidemia; I48.21 Permanent atrial fibrillation | CPT/HCPCS: 80061; 83036 ==

== ENCOUNTER → 2025-04-21 11:22 | Outpatient (BNVA) | payer MEDICARE, SELFPAY | PROVIDERS: PCP Family Medicine; Visit Provider Family Medicine | DX: E11.69 Type 2 diabetes mellitus with other specified complication (principal); E66.01 Morbid (severe) obesity due to excess calories | CPT/HCPCS: 82043 ==